=== PATIENT | male | born 1955 | race Two or more races ===

== ENCOUNTER 2024-12-26 12:58 | Inpatient (IN) | payer OTHER ==
[~2024-12-26] VITALS: Ht 182.9 cm; Wt 82.8 kg
--- NOTE | 2024-12-26 13:54 | ED.PDOC ---
General HPI Comments This is a 69 year old male presenting to the ED with chief complaint of urinary symptoms. Patient reports that he had started to experiencing urinary frequency with associated dysuria, hematuria, urgency, and incontinence since 1.5 hours ago. Patient denies any fever, chills, flank pain, or abdominal pain. Chief Complaint: Urinary Time Seen by MD: 13:49 Reviewed notes: Nurses Notes, Medications, Allergies Allergies: Coded Allergies: NO KNOWN ALLERGIES (Unverified , 12/26/24) Home Meds Active Scripts Metoprolol Succinate (Toprol Xl) 50 Mg Tab, 25 MG PO DAILY for 90 Days, #45 TAB Prov:CHA VELA MD 12/30/24 Atorvastatin Calcium (ATORVASTATIN CALCIUM) 20 Mg Tab, 10 MG PO HS for 90 Days, #45 TAB Prov:CHA VELA MD 12/30/24 Amlodipine Besylate (NORVASC TABLET) 5 Mg Tb, 5 MG PO BID for 90 Days, #180 TAB Prov:CHA VELA MD 12/30/24 Information Source: Patient Mode of Arrival: Ambulatory Severity: Moderate Timing: Hours Duration: Since onset Prehospital treatment: None Onset: Spontaneous Symptoms: Dysuria, Frequency, Urgency, Hematuria History of: None Location: None associated signs and symptoms: Dysuria, Frequency, Urgency, Hematuria Past Medical History PAST MEDICAL HISTORY: Denies Surgical History: Denies all surgeries Family History Family History: Reviewed,noncontributory to illness Social History Smoker: Non-Smoker Alcohol: Denies ETOH Use Drugs: Denies Drug Use Lives In: Home Constitutional: denies: chills, diaphoresis, fatigue, fever, malaise, sweats, weakness, others EENTM: denies: blurred vision, double vision, ear bleeding, ear discharge, ear drainage, ear pain, ear ringing, eye pain, eye redness, hearing loss, mouth pain, mouth swelling, nasal discharge, nose bleeding, nose congestion, nose pain, photophobia, tearing, throat pain, throat swelling, voice changes, others Respiratory: denies: cough, hemoptysis, orthopnea, SOB at rest, shortness of breath, SOB with excertion, stridor, wheezing, others Cardiovascular: denies: chest pain, dizzy spells, diaphoresis, Dyspnea on exertion, edema, irregular heart beat, left arm pain, lightheadedness, palpitations, PND, syncope, others Gastrointestinal: denies: abdomen distended, abdominal pain, blood streaked bowels, constipated, diarrhea, dysphagia, difficulty swallowing, hematemesis, melena, nausea, poor appetite, poor fluid intake, rectal bleeding, rectal pain, vomiting, others Genitourinary: reports: dysuria, frequency, hematuria, incontinence, urgency; denies: burning, flank pain, penile discharge, penile sore, pain, testicle pain, testicle swelling, others Neurological: denies: dizziness, fainting, headache, left sided numbness, left sided weakness, numbness, paresthesia, pre-existing deficit, right sided numbness, right sided weakness, seizure, speech problems, tingling, tremors, weakness, others Musculoskeletal: denies: back pain, gout, joint pain, joint swelling, muscle pain, muscle stiffness, neck pain, others Integumetry: denies: bruises, change in color, change in hair/nails, dryness, laceration, lesions, lumps, rash, wounds, others Allergic/Immunocompromised: denies: Difficulty Healing, Frequent Infections, Hives, Itching, others Hematologic/Lymphatic: denies: anemia, blood clots, easy bleeding, easy bruising, swollen glands, others Endocrine: denies: excessive hunger, excessive sweating, excessive thirst, excessive urination, flushing, intolerance to cold, intolerance to heat, unexplained weight gain, unexplained weight loss, others Psychiatric: denies: anxiety, bipolar disorder, depression, hopeless, panic disorder, schizophrenia, sleepless, suicidal, others All Other Systems: Reviewed and Negative Physical Exam General Appearance: No Apparent Distress, Normal HEENT: Normal ENT Inspection, Pharynx Normal, TMs Normal Neck: Full Range of Motion, Non-Tender, Normal, Normal Inspection Respiratory: Chest Non-Tender, Lungs Clear, No Accessory Muscle Use, No Respiratory Distress, Normal Breath Sounds Cardiovascular: No Edema, No JVD, No Murmur, No Gallop, Normal Peripheral Pulses, Regular Rate/Rhythm Breast Exam: Deferred Gastrointestinal: No Organomegaly, Non Tender, No Pulsatile Mass, Normal Bowel Sounds, Soft Genitalia: Deferred Pelvic: Deferred Rectal: Deferred Extremities: No calf tenderness, Normal capillary refill, Normal inspection, Normal range of motion, Non-tender, No pedal edema Musculoskeletal : Apperance: Normal Neurologic: Alert, psychiatric clinician II-XII nml as Tested, No Motor Deficits, Normal Affect, Normal Mood, No Sensory Deficits Cerebellar Function: Normal Reflexes: Normal Skin: Dry, Normal Color, Warm Lymphatic: No Adenopathy Was a procedure done? Was a procedure done?: No Differential Diagnosis Kidney stone (Female): N/A Kidney stone (Male): Pyelonephritis, Strain Penile/Scrotal: UTI Urinary Problem (Male): N/A Urinary Problem (Female): N/A X-Ray, Labs, Meds, VS Vital Signs Date Time Temp Pulse Resp B/P (MAP) Pulse Ox O2 Delivery O2 Flow Rate FiO2 12/26/24 19:00 81 20 153/78 (103) 95 12/26/24 18:33 79 17 98 Nasal Cannula* 2 28 12/26/24 18:33 98.2 79 17 153/78 (103) 98 98.2 12/26/24 18:30 53 150/84 84 148/83 94 142/84 12/26/24 18:20 75 12/26/24 13:00 98.1 89 16 142/81 98 98.1 Lab Test 12/26/24 13:44 12/26/24 13:41 Range/Units Urine Color Dark-red Yellow Urine Clarity Ex.turbid Clear Urine pH 6.0 5.0-9.0 Urine Specific [place] 1.025 1.001-1.035 Urine Protein 2+ H Negative Urine Ketones Negative Negative Urine Blood 3+ H Negative /uL Urine Nitrite Negative Negative Urine Bilirubin Negative Negative Urine Urobilinogen Normal Negative mg/dL Urine Leukocyte Esterase Negative Negative /uL Urine RBC [id number] 0 - 3 /hpf Urine Microscopic WBC 2052 H 0-3 /HPF Urine Squamous Epithelial Cells None seen <5 /hpf Urine Bacteria None seen None Seen /hpf Urine Glucose Normal Normal mg/dL White Blood Count 7.1 4.4-10.8 10^3/uL Red Blood Count 5.06 4.5-5.90 10^6/uL Hemoglobin 15.8 13.5-17.5 g/dL Hematocrit 45.9 41.0-53.0 % Mean Corpuscular Volume 90.7 80.0-100.0 fL Mean Corpuscular Hemoglobin 31.3 28.0-32.0 pg Mean Corpuscular Hemoglobin Concent 34.5 32.0-36.0 g/dL Red Cell Distribution Width 14.4 H 11.8-14.3 % Platelet Count 210 140-450 10^3/uL Mean Platelet Volume 8.6 6.9-10.8 fL Neutrophils (%) (Auto) 70.1 37.0-80.0 % Lymphocytes (%) (Auto) 20.6 10.0-50.0 % Monocytes (%) (Auto) 7.1 0.0-12.0 % Eosinophils (%) (Auto) 1.6 0.0-7.0 % Basophils (%) (Auto) 0.6 0.0-2.0 % Neutrophils # (Auto) 5.0 1.6-8.6 10 ^3/uL Lymphocytes # (Auto) 1.5 0.4-5.4 10 ^3/uL Monocytes # (Auto) 0.5 0-1.3 10 ^3/uL Eosinophils # (Auto) 0.1 0-0.8 10 ^3/uL Basophils # (Auto) 0 0-0.2 10 ^3/uL Nucleated Red Blood Cells 0.1 % Sodium Level 144 136-145 mmol/L Potassium Level 4.4 3.5-5.1 mmol/L Chloride Level 108 H 98-107 mmol/L Carbon Dioxide Level 27 20-31 mmol/L Anion Gap 9 5-15 Blood Urea Nitrogen 20 9-23 mg/dL Creatinine 1.64 H 0.700-1.30 mg/dL Glomerular Filtration Rate Calc 45 >90 mL/min BUN/Creatinine Ratio 12.2 10.0-20.0 Serum Glucose 98 74-106 mg/dL Calcium Level 9.3 8.7-10.4 mg/dL Microbiology Date/Time Source Procedure Growth Status 12/26/24 13:44 Voided Urine Urine Culture - Final Complete Time of 1ST Reevaluation: 14:48 Reevaluation 1ST: Unchanged Patient Education/Counseling: Diagnosis, Treatment Family Education/Counseling: No Family Present SEPSIS Sepsis Screen Date sepsis recognized/suspect: Dec 26, 2024 Time Sepsis recognized/suspect: 1300 Recent Procedure: No On Antibiotic Therapy: No Respiratory Rate >20: No Heart Rate >90: No Temp<36 C (96.8 F) or >38.3 C: No SBP <90 or MAP <65 mmHG: No New Acute Mental Status Change: No Is the patient on CPAP, BIPAP,: No Physician Orders Ct Ab Pel Wo Con-No Oral Or Iv (12/26/24 17:12) Orthostatic Vital Signs (12/26/24 ) Electrocardigram (12/26/24 18:10) Vital Signs Date Time Temp Pulse Resp B/P (MAP) Pulse Ox O2 Delivery O2 Flow Rate FiO2 12/26/24 19:00 81 20 153/78 (103) 95 12/26/24 18:33 79 17 98 Nasal Cannula* 2 28 12/26/24 18:33 98.2 79 17 153/78 (103) 98 98.2 12/26/24 18:30 53 150/84 84 148/83 94 142/84 12/26/24 18:20 75 12/26/24 13:00 98.1 89 16 142/81 98 98.1 Laboratory Tests Test 12/26/24 13:41 White Blood Count 7.1 10^3/uL (4.4-10.8) Departure 1 Departure Time of Disposition: 19:03 (Patient with a acute hematuria and concern for UTI. We will patient likely with a complicated urinary tract infection. We will admit patient for further workup and expert consultation) Impression: Primary Impression: Complicated UTI (urinary tract infection) Additional Impressions: Acute urinary retention Hematuria Disposition: ADMITTED INPATIENT Admit to: Med Surg Condition: Guarded e-Prescriptions Metoprolol Succinate (Toprol Xl) 50 Mg Tab 25 MG PO DAILY for 90 Days, #45 TAB Prov: CHA VELA MD 12/30/24 Atorvastatin Calcium (ATORVASTATIN CALCIUM) 20 Mg Tab 10 MG PO HS for 90 Days, #45 TAB Prov: CHA VELA MD 12/30/24 Amlodipine Besylate (NORVASC TABLET) 5 Mg Tb 5 MG PO BID for 90 Days, #180 TAB Prov: CHA VELA MD 12/30/24 Critical Care Note Critical Care Time?: No Stability Stability form required: No Heart Score Heart Score: Heart Score Response (Comments) Value History N/A 0 EKG N/A 0 Age N/A 0 Risk Factors N/A 0 Troponin N/A 0 Total 0 I personally scribed for BUZZ MORGAN MD ([email or web address]) on 12/26/24 at 13:54. Electronically submitted by Vance Grijalva ([email or web address]). BUZZ MORGAN MD Dec 26, 2024 13:54
[2024-12-26 14:11] LABS: Urine Protein, UAD 2+ (Negative)
[2024-12-26 14:13] LABS: Hematocrit 45.9 % (41.0-53.0); Hemoglobin 15.8 g/dL (13.5-17.5); Mean Corpuscular Hemoglobin 31.3 pg (28.0-32.0); Mean Corpuscular Volume 90.7 fL (80.0-100.0); Nucleated Red Blood Cells % 0.1 %
[2024-12-26 14:18] LABS: Potassium 4.4 mmol/L (3.5-5.1); Sodium 144 mmol/L (136-145)
[2024-12-26 14:19] LABS: Anion Gap 9 (5-15); Carbon Dioxide 27 mmol/L (20-31)
[2024-12-26 14:20] LABS: Calcium 9.3 mg/dL (8.7-10.4)
[2024-12-26 14:24] LABS: BUN/Creatinine Ratio 12.2 (10.0-20.0); Blood Urea Nitrogen 20 mg/dL (9-23); Glucose 98 mg/dL (74-106)
[2024-12-26 14:36] LABS: Chloride 108 mmol/L (98-107)
[2024-12-26] MEDS: SODIUM CHLORIDE 0.9% 1,000 ML IV ONE (18:24)
[2024-12-26 18:33] VITALS: PULSE 79; RESP 17; O2SAT 98
--- NOTE | 2024-12-26 18:35 | DVH ---
Exam: CT CT AB PEL WO CON-NO ORAL OR IV History: hematuria Comparison Study: None TECHNIQUE: Multidetector CT of the abdomen and pelvis without IV contrast. Axial, coronal and sagittal multiplanar reformats were obtained from the axial data set by the technologist. Radiation Dose Information: CT Dose: CTDI volume is 7.96 mGy. Dose-length product is 468.44 mGy*cm FINDINGS: Bibasilar atelectasis. Partially visualized heart is unremarkable. Status post cholecystectomy. Liver, spleen, pancreas and right adrenal glands unremarkable. 2 cm left adrenal nodule measuring up to -4 Hounsfield units which may represent an adenoma. Additional 1.4 cm left adrenal nodule measuring up to 2 Hounsfield units which may also represent an adenoma. The right kidney and ureter unremarkable. Severe Left renal hydronephrosis with cortical thinning and abrupt cutoff of the ureteropelvic junction without obstructing calculus. Bilobed Left renal lower pole calcification measuring up to 1.8 x 1.2 cm. Exophytic left renal upper pole cysts measuring up to 1.9 cm. Mild wall thickening of the urinary bladder. Hyperdense area of the Posterior Urinary bladder. Prostate measures 4.3 x 5.9 x 5 cm with brachytherapy seeding. Mild gastric wall thickening which may be due to inadequate distention. The small bowel loops unremarkable. Appendix is unremarkable. Small amount of fecal material within the colon. No evidence of intraperitoneal free air or free fluid. No evidence of aortic aneurysm. [id number] atherosclerotic calcification of the aorta and bilateral iliacs. No significant lymphadenopathy. Small fat containing left inguinal hernia. Tiny fat containing periumbilical hernia. No evidence of acute osseous abnormalities. Diffuse demineralization. IMPRESSION: Severe left Hydronephrosis with no obstructing calculus noted and abrupt tapering of the ureteropelvic junction. Bilobed 1.8 x 1.2 cm nonobstructing left renal lower pole calculus. Left adrenal adenomas Mild Gastric wall thickening which may be due to inadequate distention with mild gastritis not excluded. Wall thickening of the urinary bladder which may be from inadequate distention. Correlation with urinalysis is recommended to exclude cystitis. Ill-defined hyperdense area of the posterior urinary bladder which may represent debris large blood products with urinary bladder mass not completely excluded. Ultrasound is recommended for further evaluation.
--- NOTE | 2024-12-26 19:07 | ECG ---
[facility] Test Date: 2024-12-26 Test Time: 18:20:38 Pat Name: TRENT SANTORO Department: [facility] ED Patient ID: [id number] Room: 0212 Gender: M Senior Care Provider: stephania : 1955 Requested By: ABBEY ROBIN Order Number: [id number] Reading MD: Mitesh Simmons Measurements Intervals [place] Rate: 75 P: 59 VT: 177 QRS: 24 QRSD: 104 T: 62 QT: 405 QTc: 453 Interpretive Statements Sinus rhythm Electronically Signed On 12-30-2024 15:40:27 PST by Mitesh Simmons Please click the below link to view image of tracing.
[2024-12-26] MEDS ORDERED: ONDANSETRON HCL 4 MG/2 ML VIAL IV PRN (19:30)
[2024-12-26] MEDS ORDERED: ACETAMINOPHEN 325 MG TAB PO PRN (19:30)
[2024-12-26] MEDS ORDERED: HYDROcodone-ACET 5/325MG TAB PO PRN (19:30)
[2024-12-26] MEDS ORDERED: TEMAZEPAM 15 MG CAP PO PRN (19:30)
[2024-12-26] MEDS: ATORVASTATIN 20 MG TAB PO SCH (21:30)
--- NOTE | 2024-12-26 22:15 | DVHHP2 ---
History of Present Illness Reason for Visit: Hematuria History of Present Illness 69-year-old male presents for evaluation of urinary symptoms. Patient reports a one day history of developing dysuria with urgency and hematuria. Denies fever or chills. No abdominal pain. Past Medical History Hypertension, dyslipidemia Past Surgical History Denies Family History Noncontributory Smoke: No ALCOHOL: none Drugs: None Lives: with Family Review of Systems Review of Systems Review of systems are currently negative otherwise addressed in HPI. Allergies: Coded Allergies: NO KNOWN ALLERGIES (Unverified , 12/26/24) Medications Current Medications Medications Dose Ordered Sig/Jorge Route Start Time Stop Time Status Last Admin Dose Admin Metoprolol Succinate 25 mg DAILY PO 12/27/24 10:00 Amlodipine Besylate 5 mg DAILY PO 12/27/24 10:00 Atorvastatin Calcium 10 mg HS PO 12/26/24 22:00 12/26/24 21:30 10 MG Ceftriaxone Sodium 50 ml @ 100 mls/hr DAILY@09 IV 12/27/24 09:00 Acetaminophen/ Hydrocodone Bitart 1 tab Q4HP PRN PO 12/26/24 19:30 Temazepam 15 mg QHSP PRN PO 12/26/24 19:30 Ondansetron HCl 4 mg Q4HP PRN IV 12/26/24 19:30 Acetaminophen 650 mg Q6HP PRN PO 12/26/24 19:30 Exam Vital Signs Vital Signs Date Time Temp Pulse Resp B/P (MAP) Pulse Ox O2 Delivery O2 Flow Rate FiO2 12/26/24 21:15 80 12/26/24 19:00 20 153/78 (103) 95 12/26/24 18:33 Nasal Cannula* 2 28 12/26/24 18:33 98.2 98.2 Exam Gen: 69-year-old male in mild distress. Skin: Warm, dry, normal color and texture, no rash. HEENT: Normocephalic atraumatic, mucous membranes moist and pink. Neck: Cervical and supraclavicular nodes normal without enlargement, trachea is midline, thyroid gland is normal without masses. Pulmonary: Clear to auscultation and percussion bilaterally. Cardiac: Regular rate and rhythm. No murmur Abdomen: Soft, nontender, nondistended, bowel sounds present all 4 quadrants, no guarding, no rigidity, no organomegaly. Extremities: No cyanosis, clubbing, no edema Neuro: Cranial nerves II through XII grossly intact, normal affect and speech, no focal motor deficits. Labs/Xrays ORDERING PHYSICIAN: BUZZ MORGAN MD PROCEDURE(s): ABPL - CT AB PEL WO CON-NO ORAL OR IV REASON: hematuria ORDER NUMBER(s): [id number], ACCESSION NUMBER(s): [id number] Exam: CT CT AB PEL WO CON-NO ORAL OR IV History: hematuria Comparison Study: None TECHNIQUE: Multidetector CT of the abdomen and pelvis without IV contrast. Axial, coronal and sagittal multiplanar reformats were obtained from the axial data set by the technologist. Radiation Dose Information: CT Dose: CTDI volume is 7.96 mGy. Dose-length product is 468.44 mGy*cm FINDINGS: Bibasilar atelectasis. Partially visualized heart is unremarkable. Status post cholecystectomy. Liver, spleen, pancreas and right adrenal glands unremarkable. 2 cm left adrenal nodule measuring up to -4 Hounsfield units which may represent an adenoma. Additional 1.4 cm left adrenal nodule measuring up to 2 Hounsfield units which may also represent an adenoma. The right kidney and ureter unremarkable. Severe Left renal hydronephrosis with cortical thinning and abrupt cutoff of the ureteropelvic junction without obstructing calculus. Bilobed Left renal lower pole calcification measuring up to 1.8 x 1.2 cm. Exophytic left renal upper pole cysts measuring up to 1.9 cm. Mild wall thickening of the urinary bladder. Hyperdense area of the Posterior Urinary bladder. Prostate measures 4.3 x 5.9 x 5 cm with brachytherapy seeding. Mild gastric wall thickening which may be due to inadequate distention. The small bowel loops unremarkable. Appendix is unremarkable. Small amount of fecal material within the colon. No evidence of intraperitoneal free air or free fluid. No evidence of aortic aneurysm. [id number] atherosclerotic calcification of the aorta and bilateral iliacs. No significant lymphadenopathy. Small fat containing left inguinal hernia. Tiny fat containing periumbilical hernia. No evidence of acute osseous abnormalities. Diffuse demineralization. IMPRESSION: Severe left Hydronephrosis with no obstructing calculus noted and abrupt ta pering of the ureteropelvic junction. Bilobed 1.8 x 1.2 cm nonobstructing left renal lower pole calculus. Left adrenal adenomas Mild Gastric wall thickening which may be due to inadequate distention with mild gastritis not excluded. Wall thickening of the urinary bladder which may be from inadequate distention. Correlation with urinalysis is recommended to exclude cystitis. Ill-defined hyperdense area of the posterior urinary bladder which may represent debris large blood products with urinary bladder mass not completely excluded. Ultrasound is recommended for further evaluation. Labs Test 12/26/24 13:44 12/26/24 13:41 Range/Units Urine Color Dark-red Yellow Urine Clarity Ex.turbid Clear Urine pH 6.0 5.0-9.0 Urine Specific [place] 1.025 1.001-1.035 Urine Protein 2+ H Negative Urine Ketones Negative Negative Urine Blood 3+ H Negative /uL Urine Nitrite Negative Negative Urine Bilirubin Negative Negative Urine Urobilinogen Normal Negative mg/dL Urine Leukocyte Esterase Negative Negative /uL Urine RBC [id number] 0 - 3 /hpf Urine Microscopic WBC 2052 H 0-3 /HPF Urine Squamous Epithelial Cells None seen <5 /hpf Urine Bacteria None seen None Seen /hpf Urine Glucose Normal Normal mg/dL White Blood Count 7.1 4.4-10.8 10^3/uL Red Blood Count 5.06 4.5-5.90 10^6/uL Hemoglobin 15.8 13.5-17.5 g/dL Hematocrit 45.9 41.0-53.0 % Mean Corpuscular Volume 90.7 80.0-100.0 fL Mean Corpuscular Hemoglobin 31.3 28.0-32.0 pg Mean Corpuscular Hemoglobin Concent 34.5 32.0-36.0 g/dL Red Cell Distribution Width 14.4 H 11.8-14.3 % Platelet Count 210 140-450 10^3/uL Mean Platelet Volume 8.6 6.9-10.8 fL Neutrophils (%) (Auto) 70.1 37.0-80.0 % Lymphocytes (%) (Auto) 20.6 10.0-50.0 % Monocytes (%) (Auto) 7.1 0.0-12.0 % Eosinophils (%) (Auto) 1.6 0.0-7.0 % Basophils (%) (Auto) 0.6 0.0-2.0 % Neutrophils # (Auto) 5.0 1.6-8.6 10 ^3/uL Lymphocytes # (Auto) 1.5 0.4-5.4 10 ^3/uL Monocytes # (Auto) 0.5 0-1.3 10 ^3/uL Eosinophils # (Auto) 0.1 0-0.8 10 ^3/uL Basophils # (Auto) 0 0-0.2 10 ^3/uL Nucleated Red Blood Cells 0.1 % Sodium Level 144 136-145 mmol/L Potassium Level 4.4 3.5-5.1 mmol/L Chloride Level 108 H 98-107 mmol/L Carbon Dioxide Level 27 20-31 mmol/L Anion Gap 9 5-15 Blood Urea Nitrogen 20 9-23 mg/dL Creatinine 1.64 H 0.700-1.30 mg/dL Glomerular Filtration Rate Calc 45 >90 mL/min BUN/Creatinine Ratio 12.2 10.0-20.0 Serum Glucose 98 74-106 mg/dL Calcium Level 9.3 8.7-10.4 mg/dL SEPSIS Sepsis Screen Date sepsis recognized/suspect: Dec 26, 2024 Time Sepsis recognized/suspect: 1832 Recent Procedure: No On Antibiotic Therapy: No Respiratory Rate >20: No Heart Rate >90: No Temp<36 C (96.8 F) or >38.3 C: No SBP <90 or MAP <65 mmHG: No New Acute Mental Status Change: No Is the patient on CPAP, BIPAP,: No Physician Orders Ct Ab Pel Wo Con-No Oral Or Iv (12/26/24 17:12) Orthostatic Vital Signs (12/26/24 ) Metoprolol Xl Succinate (Toprol Xl) (12/27/24 10:00) Amlodipine Tablet (Norvasc Tablet) (12/27/24 10:00) Atorvastatin (Lipitor) (12/26/24 22:00) Ceftriaxone 1gm/50ml (Rocephin) (12/27/24 09:00) Urine Bacterial Culture (12/26/24 19:24) Basic Metabolic Panel (12/27/24 04:00) * Urology Consult (12/26/24 19:24) Admit (12/26/24 19:24) Hydrocodone-Acet 5/325mg Tab (Otis 5/32 (12/26/24 19:30) Temazepam (Restoril) (12/26/24 19:30) Ondansetron Hcl (Zofran) (12/26/24 19:30) Cardiac Diet-2gna,Lofat,Lochol (12/27/24 Breakfast) Condition: Stable (12/26/24 19:24) Acetaminophen Tablet (Tylenol Tablet) (12/26/24 19:30) Bedrest With Bathroom Privileg (12/26/24 19:24) Complete Blood Count (12/27/24 04:00) Amlodipine Tablet (Norvasc Tablet) (12/26/24 22:15) Vital Signs Date Time Temp Pulse Resp B/P (MAP) Pulse Ox O2 Delivery O2 Flow Rate FiO2 12/26/24 21:15 80 12/26/24 19:00 81 20 153/78 (103) 95 12/26/24 18:33 79 17 98 Nasal Cannula* 2 28 12/26/24 18:33 98.2 79 17 153/78 (103) 98 98.2 12/26/24 18:30 53 150/84 84 148/83 94 142/84 12/26/24 18:20 75 Laboratory Tests Test 12/26/24 13:41 White Blood Count 7.1 10^3/uL (4.4-10.8) Medications Medications Dose Ordered Sig/Jorge Route Start Time Stop Time Status Last Admin Dose Admin Atorvastatin Calcium 10 mg HS PO 12/26/24 22:00 12/26/24 21:30 10 MG Ceftriaxone Sodium 50 ml @ 100 mls/hr ONCE ONCE IV 12/26/24 19:30 12/26/24 20:08 DC 12/26/24 19:30 100 MLS/HR Sodium Chloride 1,000 ml @ 1,000 mls/hr Q1H ONCE IV 12/26/24 18:15 12/26/24 19:14 DC 12/26/24 18:24 1,000 MLS/HR Assessment/Plan Assessment/Plan Assessment Hematuria Acute cystitis Hypertension Plan Admit the patient to [facility] to the hospitalist Urology consultation Rocephin Pain management Resume home medications Continue treatment per orders. Plan discussed with: Patient My Orders Orders - GOMEZ JENNINGS Procedure Category Date Status Time Metoprolol Xl PHA 12/27/24 In Process Succinate (Toprol Xl) 10:00 Amlodipine Tablet PHA 12/27/24 In Process (Norvasc Tablet) 10:00 Atorvastatin (Lipitor) PHA 12/26/24 In Process 22:00 Ceftriaxone 1gm/50ml PHA 12/27/24 In Process (Rocephin) 09:00 Urine Bacterial LIZETTE 12/26/24 In Process Culture 19:24 Basic Metabolic Panel LAB 12/27/24 Verified 04:00 * Urology Consult CONS 12/26/24 Transmitted 19:24 Admit ADMIT 12/26/24 Transmitted 19:24 Hydrocodone-Acet PHA 12/26/24 In Process 5/325mg Tab (Otis 19:30 Temazepam (Restoril) PHA 12/26/24 In Process 19:30 Ondansetron Hcl PHA 12/26/24 In Process (Zofran) 19:30 Cardiac DIET 12/27/24 Transmitted Diet-2gna,Lofat,Lochol Breakfast Condition: Stable CHELSEA 12/26/24 In Process 19:24 Acetaminophen Tablet PHA 12/26/24 In Process (Tylenol Tablet) 19:30 Bedrest With Bathroom CHELSEA 12/26/24 In Process Privileg 19:24 Complete Blood Count LAB 12/27/24 Verified 04:00 Amlodipine Tablet PHA 12/26/24 Transmitted (Norvasc Tablet) 22:15 Date of Service: Dec 26, 2024 Billing Provider: GOMEZ JENNINGS Common Visit Codes: [id number] INP/OBS CARE (MOD) GOMEZ JENNINGS Dec 26, 2024 22:15
[2024-12-27] VITALS (10 sets, daily range): BP systolic 114–140; BP diastolic 68–89; PULSE 62–92; RESP 17–19; TEMP 97.5–98.6; O2SAT 95–99
[2024-12-27 06:37] LABS: Hematocrit 44.1 % (41.0-53.0); Hemoglobin 15.0 g/dL (13.5-17.5); Mean Corpuscular Hemoglobin 31.0 pg (28.0-32.0); Mean Corpuscular Volume 91.4 fL (80.0-100.0); Nucleated Red Blood Cells % 0.1 %
[2024-12-27 06:47] LABS: Potassium 4.2 mmol/L (3.5-5.1)
[2024-12-27 06:48] LABS: Anion Gap 9 (5-15); Carbon Dioxide 27 mmol/L (20-31)
[2024-12-27 06:49] LABS: Calcium 9.0 mg/dL (8.7-10.4)
[2024-12-27 06:53] LABS: Glucose 91 mg/dL (74-106)
[2024-12-27 06:54] LABS: BUN/Creatinine Ratio 14.5 (10.0-20.0); Blood Urea Nitrogen 20 mg/dL (9-23); Chloride 113 mmol/L (98-107); Sodium 149 mmol/L (136-145)
--- NOTE | 2024-12-27 09:49 | DVHINCON2 ---
Date of service: Dec 27, 2024 Referring Physician Hospitalist Reason for Consultation Hematuria History of Present Illness 69 year old male admitted for hematuria. Patient reports that he had started to experiencing urinary frequency with associated dysuria, hematuria, urgency, and incontinence. Patient denies any fever, chills, flank pain, or abdominal pain. CT Scan shows severe left hydronephrosis, left renal stones. Chief Complaint: Urinary Reviewed notes: Nurses Notes, Medications, Allergies Allergies: Coded Allergies: NO KNOWN ALLERGIES (Unverified , 12/26/24) Information Source: Patient Mode of Arrival: Ambulatory Severity: Moderate Timing: Hours Duration: Since onset Prehospital treatment: None Onset: Spontaneous Symptoms: Dysuria, Frequency, Urgency, Hematuria History of: None Location: None associated signs and symptoms: Dysuria, Frequency, Urgency, Hematuria Past Medical History Denies Family History: Hypertension G8 MOTHER Allergies: Coded Allergies: NO KNOWN ALLERGIES (Unverified , 12/26/24) Current Medications Current Medications Medications (Trade) Dose Ordered Sig/Jorge Route PRN Reason Start Time Stop Time Status Last Admin Metoprolol Succinate (Toprol Xl) 25 mg DAILY PO 12/27/24 10:00 Amlodipine Besylate (Norvasc Tablet) 5 mg DAILY PO 12/27/24 10:00 12/26/24 22:12 DC Atorvastatin Calcium (Lipitor) 10 mg HS PO 12/26/24 22:00 12/26/24 21:30 Ceftriaxone Sodium 50 ml @ 100 mls/hr DAILY@09 IV 12/27/24 09:00 Acetaminophen/ Hydrocodone Bitart ([place] 5/325MG Tab) 1 tab Q4HP PRN PO MODERATE PAIN (4-6 PAIN SCALE) 12/26/24 19:30 Temazepam (Restoril) 15 mg QHSP PRN PO FOR INSOMNIA 12/26/24 19:30 Ondansetron HCl (Zofran) 4 mg Q4HP PRN IV NAUSEA / VOMITING 12/26/24 19:30 Acetaminophen (Tylenol Tablet) 650 mg Q6HP PRN PO PAIN SCALE 1-3 OR TEMP>100.4 12/26/24 19:30 Amlodipine Besylate (Norvasc Tablet) 5 mg BID PO 12/26/24 22:15 Review of Systems Constitutional: denies: chills, diaphoresis, fatigue, fever, malaise, sweats, weakness, others EENTM: denies: blurred vision, double vision, ear bleeding, ear discharge, ear drainage, ear pain, ear ringing, eye pain, eye redness, hearing loss, mouth pain, mouth swelling, nasal discharge, nose bleeding, nose congestion, nose pain, photophobia, tearing, throat pain, throat swelling, voice changes, others Respiratory: denies: cough, hemoptysis, orthopnea, SOB at rest, shortness of breath, SOB with excertion, stridor, wheezing, others Cardiovascular: denies: chest pain, dizzy spells, diaphoresis, Dyspnea on exertion, edema, irregular heart beat, left arm pain, lightheadedness, palpitations, PND, syncope, others Gastrointestinal: denies: abdomen distended, abdominal pain, blood streaked bowels, constipated, diarrhea, dysphagia, difficulty swallowing, hematemesis, melena, nausea, poor appetite, poor fluid intake, rectal bleeding, rectal pain, vomiting, others Genitourinary: reports: dysuria, frequency, hematuria, incontinence, urgency; denies: burning, flank pain, penile discharge, penile sore, pain, testicle pain, testicle swelling, others Neurological: denies: dizziness, fainting, headache, left sided numbness, left sided weakness, numbness, paresthesia, pre-existing deficit, right sided numbness, right sided weakness, seizure, speech problems, tingling, tremors, weakness, others Musculoskeletal: denies: back pain, gout, joint pain, joint swelling, muscle pain, muscle stiffness, neck pain, others Integumetry: denies: bruises, change in color, change in hair/nails, dryness, laceration, lesions, lumps, rash, wounds, others Allergic/Immunocompromised: denies: Difficulty Healing, Frequent Infections, Hives, Itching, others Hematologic/Lymphatic: denies: anemia, blood clots, easy bleeding, easy bruising, swollen glands, others Endocrine: denies: excessive hunger, excessive sweating, excessive thirst, excessive urination, flushing, intolerance to cold, intolerance to heat, unexplained weight gain, unexplained weight loss, others Psychiatric: denies: anxiety, bipolar disorder, depression, hopeless, panic disorder, schizophrenia, sleepless, suicidal, others All Other Systems: Reviewed and Negative Vital Signs Vital Signs Date Time Temp Pulse Resp B/P (MAP) Pulse Ox O2 Delivery O2 Flow Rate FiO2 12/27/24 05:00 98.1 77 19 140/87 (104) 95 98.1 12/27/24 02:11 Room Air* 0 21 Physical Exam General Appearance: No Apparent Distress, Normal HEENT: Normal ENT Inspection, Pharynx Normal, TMs Normal Neck: Full Range of Motion, Non-Tender, Normal, Normal Inspection Respiratory: Chest Non-Tender, Lungs Clear, No Accessory Muscle Use, No Respiratory Distress, Normal Breath Sounds Cardiovascular: No Edema, No JVD, No Murmur, No Gallop, Normal Peripheral Pulses, Regular Rate/Rhythm Breast Exam: Deferred Gastrointestinal: No Organomegaly, Non Tender, No Pulsatile Mass, Normal Bowel Sounds, Soft Genitalia: Normal Extremities: No calf tenderness, Normal capillary refill, Normal inspection, Normal range of motion, Non-tender, No pedal edema Musculoskeletal : Apperance: Normal Neurologic: Alert, senior solutions workflow consultant II-XII nml as Tested, No Motor Deficits, Normal Affect, Normal Mood, No Sensory Deficits Cerebellar Function: Normal Reflexes: Normal Skin: Dry, Normal Color, Warm Lymphatic: No Adenopathy Labs/Diagnostic Data Labs Test 12/27/24 05:05 12/26/24 13:44 Range/Units White Blood Count 6.0 4.4-10.8 10^3/uL Red Blood Count 4.82 4.5-5.90 10^6/uL Hemoglobin 15.0 13.5-17.5 g/dL Hematocrit 44.1 41.0-53.0 % Mean Corpuscular Volume 91.4 80.0-100.0 fL Mean Corpuscular Hemoglobin 31.0 28.0-32.0 pg Mean Corpuscular Hemoglobin Concent 33.9 32.0-36.0 g/dL Red Cell Distribution Width 14.7 H 11.8-14.3 % Platelet Count 186 140-450 10^3/uL Mean Platelet Volume 8.5 6.9-10.8 fL Neutrophils (%) (Auto) 65.7 37.0-80.0 % Lymphocytes (%) (Auto) 25.3 10.0-50.0 % Monocytes (%) (Auto) 6.7 0.0-12.0 % Eosinophils (%) (Auto) 1.7 0.0-7.0 % Basophils (%) (Auto) 0.6 0.0-2.0 % Neutrophils # (Auto) 4.0 1.6-8.6 10 ^3/uL Lymphocytes # (Auto) 1.5 0.4-5.4 10 ^3/uL Monocytes # (Auto) 0.4 0-1.3 10 ^3/uL Eosinophils # (Auto) 0.1 0-0.8 10 ^3/uL Basophils # (Auto) 0 0-0.2 10 ^3/uL Nucleated Red Blood Cells 0.1 % Sodium Level 149 #H 136-145 mmol/L Potassium Level 4.2 3.5-5.1 mmol/L Chloride Level 113 H 98-107 mmol/L Carbon Dioxide Level 27 20-31 mmol/L Anion Gap 9 5-15 Blood Urea Nitrogen 20 9-23 mg/dL Creatinine 1.38 H 0.700-1.30 mg/dL Glomerular Filtration Rate Calc 55 >90 mL/min BUN/Creatinine Ratio 14.5 10.0-20.0 Serum Glucose 91 74-106 mg/dL Calcium Level 9.0 8.7-10.4 mg/dL Urine Color Dark-red Yellow Urine Clarity Ex.turbid Clear Urine pH 6.0 5.0-9.0 Urine Specific [place] 1.025 1.001-1.035 Urine Protein 2+ H Negative Urine Ketones Negative Negative Urine Blood 3+ H Negative /uL Urine Nitrite Negative Negative Urine Bilirubin Negative Negative Urine Urobilinogen Normal Negative mg/dL Urine Leukocyte Esterase Negative Negative /uL Urine RBC [id number] 0 - 3 /hpf Urine Microscopic WBC 2052 H 0-3 /HPF Urine Squamous Epithelial Cells None seen <5 /hpf Urine Bacteria None seen None Seen /hpf Urine Glucose Normal Normal mg/dL PATIENT: TRENT SANTORO ACCT: [id number] UNIT: [id number] : 1955 LOC: ER ROOM / BED: / AGE / SEX: 69 / M ADM STATUS: REG ER SERVICE 1712 ORDERING PHYSICIAN: BUZZ MORGAN MD PROCEDURE(s): ABPL - CT AB PEL WO CON-NO ORAL OR IV REASON: hematuria ORDER NUMBER(s): [id number], ACCESSION NUMBER(s): [id number] Exam: CT CT AB PEL WO CON-NO ORAL OR IV History: hematuria Comparison Study: None TECHNIQUE: Multidetector CT of the abdomen and pelvis without IV contrast. Axial, coronal and sagittal multiplanar reformats were obtained from the axial data set by the technologist. Radiation Dose Information: CT Dose: CTDI volume is 7.96 mGy. Dose-length product is 468.44 mGy*cm FINDINGS: Bibasilar atelectasis. Partially visualized heart is unremarkable. Status post cholecystectomy. Liver, spleen, pancreas and right adrenal glands unremarkable. 2 cm left adrenal nodule measuring up to -4 Hounsfield units which may represent an adenoma. Additional 1.4 cm left adrenal nodule measuring up to 2 Hounsfield units which may also represent an adenoma. The right kidney and ureter unremarkable. Severe Left renal hydronephrosis with cortical thinning and abrupt cutoff of the ureteropelvic junction without obstructing calculus. Bilobed Left renal lower pole calcification measuring up to 1.8 x 1.2 cm. Exophytic left renal upper pole cysts measuring up to 1.9 cm. Mild wall thickening of the urinary bladder. Hyperdense area of the Posterior Urinary bladder. Prostate measures 4.3 x 5.9 x 5 cm with brachytherapy seeding. Mild gastric wall thickening which may be due to inadequate distention. The small bowel loops unremarkable. Appendix is unremarkable. Small amount of fecal material within the colon. No evidence of intraperitoneal free air or free fluid. No evidence of aortic aneurysm. [id number]-[id number] atherosclerotic calcification of the aorta and bilateral iliacs. No significant lymphadenopathy. Small fat containing left inguinal hernia. Tiny fat containing periumbilical hernia. No evidence of acute osseous abnormalities. Diffuse demineralization. IMPRESSION: Severe left Hydronephrosis with no obstructing calculus noted and abrupt tapering of the ureteropelvic junction. Bilobed 1.8 x 1.2 cm nonobstructing left renal lower pole calculus. Left adrenal adenomas Mild Gastric wall thickening which may be due to inadequate distention with mild gastritis not excluded. Wall thickening of the urinary bladder which may be from inadequate distention. Correlation with urinalysis is recommended to exclude cystitis. Ill-defined hyperdense area of the posterior urinary bladder which may represent debris large blood products with urinary bladder mass not completely excluded. Ultrasound is recommended for further evaluation. ATED BY: KELSEY HEIN DO DICTATED DATE/TIME: 12/26/241832 SIGNED BY: KELSEY HEIN DO SIGNED DATE/TIME: 12/26/241832 CC: Assessment Left hydronephrosis, severe Left renal stones Hematuria Dysuria Plan/Recommendation Urine culture Bladder US to check for jetting Left PNT placement per IR requested mag 3 Renal scan with split renal function and lasix washout Plan discussed with: Patient, Other EDDIE BRIDGES MD Dec 27, 2024 09:49
[2024-12-27] MEDS: METOPROLOL SUCCINATE XL 50 MG TAB PO SCH (10:29)
--- NOTE | 2024-12-27 10:52 | DVH ---
Exam: US BLADDER History: look for left ureteral jetting Comparison: None Date: 12/27/2024 09:53 AM Technique: Grayscale and color Doppler ultrasound of the pelvis was obtained. Pre-and postvoid images of the bladder were obtained. Findings/Impression: Urinary bladder is decompressed with Still catheter. Debris is in the urinary bladder.
--- NOTE | 2024-12-27 12:20 | DVHPN2 ---
Subjective feeling well with minimal pain Reviewed: H&P Changes from previous H/P or p: No Changes Objective Vitals Vital Signs Date Time Temp Pulse Resp B/P (MAP) Pulse Ox O2 Delivery O2 Flow Rate FiO2 12/27/24 10:29 137/87 12/27/24 10:29 72 12/27/24 05:00 98.1 19 95 98.1 12/27/24 02:11 Room Air* 0 21 Intake/Output Intake and Output 12/27/24 07:00 Intake Total 1050 ml Balance 1050 ml Intake IV Total 1050 ml General Appearance: Alert, Oriented X3 HEENT: Atraumatic Lungs: Clear to auscultation Cardiovascular: Regular rate, Normal S1, Normal S2 Abdomen: Normal bowel sounds Medications Current Medications Medications Dose Ordered Sig/Jorge Route Start Time Stop Time Status Last Admin Dose Admin Metoprolol Succinate 25 mg DAILY PO 12/27/24 10:00 12/27/24 10:29 25 MG Atorvastatin Calcium 10 mg HS PO 12/26/24 22:00 12/26/24 21:30 10 MG Ceftriaxone Sodium 50 ml @ 100 mls/hr DAILY@09 IV 12/27/24 09:00 12/27/24 10:27 100 MLS/HR Acetaminophen/ Hydrocodone Bitart 1 tab Q4HP PRN PO 12/26/24 19:30 Temazepam 15 mg QHSP PRN PO 12/26/24 19:30 Ondansetron HCl 4 mg Q4HP PRN IV 12/26/24 19:30 Acetaminophen 650 mg Q6HP PRN PO 12/26/24 19:30 Amlodipine Besylate 5 mg BID PO 12/26/24 22:15 12/27/24 10:29 5 MG Laboratory Results Laboratory Tests 12/27/24 05:05 Chemistry Test 12/26/24 13:41 12/27/24 05:05 Calcium Level 9.3 mg/dL (8.7-10.4) 9.0 mg/dL (8.7-10.4) Urinalysis Test 12/26/24 13:44 Urine Color Dark-red (Yellow) Urine Clarity Ex.turbid (Clear) Urine pH 6.0 (5.0-9.0) Urine Specific [place] 1.025 (1.001-1.035) Urine Protein 2+ (Negative) H Urine Ketones Negative (Negative) Urine Blood 3+ /uL (Negative) H Urine Nitrite Negative (Negative) Urine Bilirubin Negative (Negative) Urine Urobilinogen Normal mg/dL (Negative) Urine Leukocyte Esterase Negative /uL (Negative) Urine RBC [id number] /hpf (0 - 3) Urine Microscopic WBC 2052 /HPF (0-3) H Urine Squamous Epithelial Cells None seen /hpf (<5) Urine Bacteria None seen /hpf (None Seen) Urine Glucose Normal mg/dL (Normal) Microbiology Microbiology Date/Time Source Procedure Growth Status 12/26/24 13:44 Voided Urine Urine Culture - Preliminary Resulted Assessment/Plan Assessment/Plan Hematuria Acute cystitis Hypertension Continue IV ceftriaxone urology following, going for nephrostomy tube monitor cbc and bmp Plan discussed with: Patient Date of Service: Dec 27, 2024 Billing Provider: CHA VELA MD Common Visit Codes: [id number] INP/OBS CARE(HIGH) CHA VELA MD Dec 27, 2024 12:20
[2024-12-27 13:48] LABS: INR 0.95 (0.9-1.15); Partial Thromboplastin Time 28.3 SEC (24.5-34.5); Prothrombin Time 10.1 sec (9.3-11.8)
--- NOTE | 2024-12-27 14:32 | DVH ---
INDICATION: LT HYDRO, REPEAT BLADDER URETRAL JETTING TECHNIQUE: Multiple real-time sonographic images of the kidneys and bladder were obtained. COMPARISON: None FINDINGS: The right kidney measures 10 cm in length, which is normal in size. There is normal echogenicity of the right kidney. No hydronephrosis. The left kidney measures 17 cm in length,. 2 cm left renal mass . MRI renal mass protocol recommended. Severe left hydronephrosis. Severe left hydronephrosis. No large intraluminal masses are seen in the bladder. Prior to voiding the bladder volume measures volume 120 cc. IMPRESSION: 2 cm left renal mass . MRI renal mass protocol recommended. Severe left hydronephrosis.
[2024-12-28] VITALS (12 sets, daily range): BP systolic 111–145; BP diastolic 67–99; PULSE 60–86; RESP 12–22; TEMP 98–98.3; O2SAT 95–100
[2024-12-28] MEDS: LIDOCAINE 2%HCL (LOCAL ANESTH.) INJ 20ML MDV ONE (11:46)
[2024-12-28] MEDS: fentaNYL CITRATE 100 MCG/2 ML VL ONE (11:51)
[2024-12-28] MEDS: MIDAZOLAM HCL 2MG/2ML 2ml VIAL (1mg/ml) ONE (11:51)
--- NOTE | 2024-12-28 13:11 | DVH ---
XY PERCUTANEOUS NEPHROSTOMY, HISTORY: INSERTION NEPH TUBE for severe hydronephrosis due to obstruction. PROCEDURE: Informed consent was obtained. The patient was placed on the fluoroscopic table in a prone position and IV sedation administered. The left flank was prepped with chlorhexidine which was allowed to dry and draped in the usual sterile fashion. Time out was performed. and the soft tissues infiltrated with 1% lidocaine local anesthetic. Utilizing ultrasound guidance, a 21 gauge Accu Stick needle was advanced from a posterolateral approach into an middle pole calyx, and a small amount of contrast was injected under fluoroscopy to confirm positioning. Over a mandril wire, exchange was made to a non-vascular access set, through which was advanced an 0.035 wire. Following serial dilation, an 8.5 Mongolian multipurpose nephrostomy catheter was placed with tip pigtailed within the renal pelvis. Position was confirmed with antegrade nephrostogram. The catheter was secured in place and connected to gravity drainage. A sterile dressing was applied. No immediate complication was identified. DAP 169 FLUOROSCOPY TIME: 1.5 minutes. CONTRAST USED: 20 mL. SEDATION: Dr. Cammy Barker was personally responsible for the administration of moderate sedation during the procedure performed, including the use of an independent trained observer who had no other duties during the procedure. The drugs utilized were IV fentanyl and versed (see nursing log for details). The total time of supervision by the attending physician was approximately 30 minutes. FINDINGS: Dilated left renal collecting system involving the calyces/renal pelvis/ureter to the level of the proximal ureter. New 8.5 uzbek nephrostomy tube via a posterior mid pole calyceal access, with loop coiled within the renal pelvis. IMPRESSION: Severe left hydronephrosis , status post placement of 8.5 Mongolian left percutaneous nephrostomy catheter. PLAN: Routine catheter care.
--- NOTE | 2024-12-28 13:30 | DVHPN2 ---
Subjective feeling well with minimal pain Going for nephrostomy tube Reviewed: H&P Changes from previous H/P or p: No Changes Objective Vitals Vital Signs Date Time Temp Pulse Resp B/P (MAP) Pulse Ox O2 Delivery O2 Flow Rate FiO2 12/28/24 13:15 67 12 145/96 (112) 98 12/28/24 08:34 98.1 98.1 12/28/24 08:00 Room Air* 0 21 Intake/Output Intake and Output 12/28/24 07:00 Intake Total 250 ml Output Total 180 ml Balance 70 ml Intake Oral 200 ml IV Total 50 ml Output Urine Total 180 ml General Appearance: Alert, Oriented X3 HEENT: Atraumatic Lungs: Clear to auscultation Cardiovascular: Regular rate, Normal S1, Normal S2 Abdomen: Normal bowel sounds Medications Current Medications Medications Dose Ordered Sig/Jorge Route Start Time Stop Time Status Last Admin Dose Admin Metoprolol Succinate 25 mg DAILY PO 12/27/24 10:00 12/27/24 10:29 25 MG Atorvastatin Calcium 10 mg HS PO 12/26/24 22:00 12/27/24 21:53 10 MG Ceftriaxone Sodium 50 ml @ 100 mls/hr DAILY@09 IV 12/27/24 09:00 12/28/24 08:41 100 MLS/HR Acetaminophen/ Hydrocodone Bitart 1 tab Q4HP PRN PO 12/26/24 19:30 Temazepam 15 mg QHSP PRN PO 12/26/24 19:30 Ondansetron HCl 4 mg Q4HP PRN IV 12/26/24 19:30 Acetaminophen 650 mg Q6HP PRN PO 12/26/24 19:30 Amlodipine Besylate 5 mg BID PO 12/26/24 22:15 12/27/24 21:52 5 MG Laboratory Results Laboratory Tests 12/27/24 05:05 Urinalysis Test 12/26/24 13:44 Urine Color Dark-red (Yellow) Urine Clarity Ex.turbid (Clear) Urine pH 6.0 (5.0-9.0) Urine Specific [place] 1.025 (1.001-1.035) Urine Protein 2+ (Negative) H Urine Ketones Negative (Negative) Urine Blood 3+ /uL (Negative) H Urine Nitrite Negative (Negative) Urine Bilirubin Negative (Negative) Urine Urobilinogen Normal mg/dL (Negative) Urine Leukocyte Esterase Negative /uL (Negative) Urine RBC [id number] /hpf (0 - 3) Urine Microscopic WBC 2052 /HPF (0-3) H Urine Squamous Epithelial Cells None seen /hpf (<5) Urine Bacteria None seen /hpf (None Seen) Urine Glucose Normal mg/dL (Normal) Microbiology Microbiology Date/Time Source Procedure Growth Status 12/26/24 13:44 Voided Urine Urine Culture - Preliminary Resulted Assessment/Plan Assessment/Plan Hematuria Acute cystitis Hypertension Continue IV ceftriaxone urology following, going for nephrostomy tube monitor cbc and bmp Plan discussed with: Patient My Orders Orders - CHA VELA MD Procedure Category Date Status Time Basic Metabolic Panel LAB 12/28/24 Logged 09:49 Date of Service: Dec 28, 2024 Billing Provider: CHA VELA MD Common Visit Codes: [id number] INP/OBS CARE(HIGH) CHA VELA MD Dec 28, 2024 13:30
[2024-12-28 14:51] LABS: Anion Gap 10 (5-15); Carbon Dioxide 28 mmol/L (20-31); Potassium 4.0 mmol/L (3.5-5.1)
[2024-12-28 14:52] LABS: Calcium 9.0 mg/dL (8.7-10.4)
[2024-12-28 14:54] LABS: Chloride 108 mmol/L (98-107); Sodium 146 mmol/L (136-145)
[2024-12-28 14:57] LABS: BUN/Creatinine Ratio 17.1 (10.0-20.0); Glucose 95 mg/dL (74-106)
[2024-12-28 14:58] LABS: Blood Urea Nitrogen 24 mg/dL (9-23)
[2024-12-28] MEDS: FUROSEMIDE 40 MG/4 ML VIAL ONE (15:55)
[2024-12-28] MEDS: FUROSEMIDE 40 MG/4 ML VIAL IV ONE (15:55)
--- NOTE | 2024-12-28 20:19 | DVH ---
Procedure: NM NM MAG3 RENAL SCAN Exam Date: 12/28/2024 03:14 PM. Clinical History: Left hydronephrosis Comparison Study: XY PERCUTANEOUS NEPHROSTOMY on DOS: 12/28/24, US KIDNEY on DOS: 12/27/24, US BLADDER on DOS: 12/27/24 Nuclear Medicine Renal Scan with Lasix. Technique: Following the intravenous administration of 8.5 mCi of technetium 99m labeled MAG-3 , flow images were acquired in one second intervals. This was followed by functional imaging of the kidneys in the posterior projection which were obtained at 20 seconds intervals reconstructed into 2 minute frames for a total of 34 minutes. 40 mg of Lasix were given IV at the 10 minute benjamin. Flow curves and functional renogram curves were generated. Split function data were generated from the first three minutes of the study. Findings: The flow study reveals prompt visualization of both kidneys with normal flow bilaterally. The kidneys are normal size, location and contour. The functional data was obtained with the renal pelvis included in the region of interest: Left: Peak time on the left is 38 minutes. Peak to 1/2 peak on the left is n/a minutes. Diuretic T 1/2 on the left is n/a minutes. Right: Peak time on the right is 6.5 minutes. Peak to 1/2 peak on the right is 14 minutes. Diuretic T 1/2 on the right is 4.5 minutes. Split function is 37 % on the left and 63 % on the right. IMPRESSION: Split function is 37 % on the left and 63 % on the right. Left kidney demonstrates no excretion and is nonresponsive to Lasix administration suggesting functional obstruction. Clinical correlation advised.
[2024-12-29 05:00] VITALS: BP 123/74; PULSE 61; RESP 18; TEMP 97.9; O2SAT 96
[2024-12-29 08:47] VITALS: BP 126/96; PULSE 65; RESP 16; TEMP 97.8; O2SAT 96
[2024-12-29 12:03] LABS: Anion Gap 9 (5-15); Carbon Dioxide 26 mmol/L (20-31); Potassium 4.3 mmol/L (3.5-5.1); Sodium 143 mmol/L (136-145)
[2024-12-29 12:04] LABS: Calcium 8.8 mg/dL (8.7-10.4)
[2024-12-29 12:07] LABS: Chloride 108 mmol/L (98-107)
[2024-12-29 12:09] LABS: BUN/Creatinine Ratio 16.1 (10.0-20.0); Blood Urea Nitrogen 22 mg/dL (9-23); Glucose 101 mg/dL (74-106)
--- NOTE | 2024-12-29 12:41 | DVHPN2 ---
Subjective feeling well with minimal pain s/p nephrostomy tube Reviewed: H&P Changes from previous H/P or p: No Changes Objective Vitals Vital Signs Date Time Temp Pulse Resp B/P (MAP) Pulse Ox O2 Delivery O2 Flow Rate FiO2 12/29/24 08:47 97.8 65 16 126/96 (106) 96 97.8 12/28/24 20:00 Room Air* 0 21 Intake/Output Intake and Output 12/29/24 07:00 Intake Total 1000 ml Output Total 400 ml Balance 600 ml Intake Oral 1000 ml Drainage Total 400 ml # Voids 5 # Bowel Movements 1 General Appearance: Alert, Oriented X3 HEENT: Atraumatic Lungs: Clear to auscultation Cardiovascular: Regular rate, Normal S1, Normal S2 Abdomen: Normal bowel sounds Medications Current Medications Medications Dose Ordered Sig/Jorge Route Start Time Stop Time Status Last Admin Dose Admin Metoprolol Succinate 25 mg DAILY PO 12/27/24 10:00 12/29/24 08:46 25 MG Atorvastatin Calcium 10 mg HS PO 12/26/24 22:00 12/28/24 21:48 10 MG Ceftriaxone Sodium 50 ml @ 100 mls/hr DAILY@09 IV 12/27/24 09:00 12/29/24 08:45 100 MLS/HR Acetaminophen/ Hydrocodone Bitart 1 tab Q4HP PRN PO 12/26/24 19:30 Temazepam 15 mg QHSP PRN PO 12/26/24 19:30 Ondansetron HCl 4 mg Q4HP PRN IV 12/26/24 19:30 Acetaminophen 650 mg Q6HP PRN PO 12/26/24 19:30 Amlodipine Besylate 5 mg BID PO 12/26/24 22:15 12/29/24 08:46 5 MG Laboratory Results Laboratory Tests 12/27/24 05:05 12/29/24 11:06 Chemistry Test 12/28/24 14:06 12/29/24 11:06 Calcium Level 9.0 mg/dL (8.7-10.4) 8.8 mg/dL (8.7-10.4) Urinalysis Test 12/26/24 13:44 Urine Color Dark-red (Yellow) Urine Clarity Ex.turbid (Clear) Urine pH 6.0 (5.0-9.0) Urine Specific [place] 1.025 (1.001-1.035) Urine Protein 2+ (Negative) H Urine Ketones Negative (Negative) Urine Blood 3+ /uL (Negative) H Urine Nitrite Negative (Negative) Urine Bilirubin Negative (Negative) Urine Urobilinogen Normal mg/dL (Negative) Urine Leukocyte Esterase Negative /uL (Negative) Urine RBC [id number] /hpf (0 - 3) Urine Microscopic WBC 2052 /HPF (0-3) H Urine Squamous Epithelial Cells None seen /hpf (<5) Urine Bacteria None seen /hpf (None Seen) Urine Glucose Normal mg/dL (Normal) Microbiology Microbiology Date/Time Source Procedure Growth Status 12/28/24 12:23 Urine - Kidney Urine Culture - Preliminary No growth Resulted Assessment/Plan Assessment/Plan Hematuria Acute cystitis Hypertension Continue IV ceftriaxone s/p nephrostomy monitor cbc and bmp Having some red urine on bag monitor creatinine Dispo: Possible dc tomorrow Plan discussed with: Patient Date of Service: Dec 29, 2024 Billing Provider: CHA VELA MD Common Visit Codes: [id number] INP/OBS CARE(HIGH) CHA VELA MD Dec 29, 2024 12:41
[2024-12-29 13:00] VITALS: BP 110/68; PULSE 53; RESP 18; TEMP 98.2; O2SAT 96
[2024-12-29 17:00] VITALS: BP 120/66; PULSE 66; RESP 18; TEMP 97.5; O2SAT 96
[2024-12-29 20:00] VITALS: RESP 16
[2024-12-29 21:00] VITALS: BP 112/64; PULSE 61; RESP 17; TEMP 98.2; O2SAT 97
[2024-12-30 01:00] VITALS: BP 119/71; PULSE 60; RESP 16; TEMP 98.1; O2SAT 97
[2024-12-30 05:00] VITALS: BP 126/84; PULSE 57; RESP 16; TEMP 98.1; O2SAT 97
[2024-12-30 07:56] VITALS: RESP 16
[2024-12-30 09:00] VITALS: BP 110/62; PULSE 65; RESP 16; TEMP 98; O2SAT 95
--- NOTE | 2024-12-30 11:03 | DVHPN2 ---
Progress Note - Dictate Date Seen: Dec 30, 2024 Has the PT tested + for MRSA If YES, has PT been informed?: No Medical Necessity Reason Pt with a Central, PICC or Fol: Yes Medical Necessity Reason Severe left hydronephrosis, s/p left PNT placement by IR service 12/28/24 vital signs Vital Sign Date Time Temp Pulse Resp B/P (MAP) Pulse Ox O2 Delivery O2 Flow Rate FiO2 12/30/24 09:00 98.0 65 16 110/62 (78) 95 98.0 12/30/24 07:56 Room Air* 0 21 Total Intake and Output 12/29/24 12/29/24 12/30/24 15:00 23:00 07:00 Intake Total 50 ml 840 ml 300 ml Output Total 550 ml 325 ml Balance 50 ml 290 ml -25 ml medications Current Medications Medications Dose Ordered Sig/Jorge Route Start Time Stop Time Status Last Admin Dose Admin Metoprolol Succinate 25 mg DAILY PO 12/27/24 10:00 12/30/24 09:00 25 MG Atorvastatin Calcium 10 mg HS PO 12/26/24 22:00 12/29/24 22:21 10 MG Ceftriaxone Sodium 50 ml @ 100 mls/hr DAILY@09 IV 12/27/24 09:00 12/30/24 09:01 100 MLS/HR Acetaminophen/ Hydrocodone Bitart 1 tab Q4HP PRN PO 12/26/24 19:30 Temazepam 15 mg QHSP PRN PO 12/26/24 19:30 Ondansetron HCl 4 mg Q4HP PRN IV 12/26/24 19:30 Acetaminophen 650 mg Q6HP PRN PO 12/26/24 19:30 Amlodipine Besylate 5 mg BID PO 12/26/24 22:15 12/30/24 09:00 5 MG objective PATIENT: TRENT SANTORO ACCT: [id number] UNIT: [id number] : 1955 LOC: CENTRAL ROOM / BED: 0206 / A AGE / SEX: 69 / M ADM STATUS: ADM IN SERVICE 1345 ORDERING PHYSICIAN: EDDIE BRIDGES MD PROCEDURE(s): KDF - NM MAG3 RENAL SCAN REASON: Left hydronephrosis ORDER NUMBER(s): [id number], ACCESSION NUMBER(s): [id number] Procedure: NM NM MAG3 RENAL SCAN Exam Date: 12/28/2024 03:14 PM. Clinical History: Left hydronephrosis Comparison Study: XY PERCUTANEOUS NEPHROSTOMY on DOS: 12/28/24, US KIDNEY on DOS: 12/27/24, US BLADDER on DOS: 12/27/24 Nuclear Medicine Renal Scan with Lasix. Technique: Following the intravenous administration of 8.5 mCi of technetium 99m labeled MAG-3 , flow images were acquired in one second intervals. This was followed by functional imaging of the kidneys in the posterior projection which were obtained at 20 seconds intervals reconstructed into 2 minute frames for a total of 34 minutes. 40 mg of Lasix were given IV at the 10 minute benjamin. Flow curves and functional renogram curves were generated. Split function data were generated from the first three minutes of the study. Findings: The flow study reveals prompt visualization of both kidneys with normal flow bilaterally. The kidneys are normal size, location and contour. The functional data was obtained with the renal pelvis included in the region of interest: Left: Peak time on the left is 38 minutes. Peak to 1/2 peak on the left is n/a minutes. Diuretic T 1/2 on the left is n/a minutes. Right: Peak time on the right is 6.5 minutes. Peak to 1/2 peak on the right is 14 minutes. Diuretic T 1/2 on the right is 4.5 minutes. Split function is 37 % on the left and 63 % on the right. IMPRESSION: Split function is 37 % on the left and 63 % on the right. Left kidney demonstrates no excretion and is nonresponsive to Lasix administration suggesting functional obstruction. Clinical correlation advised. ATED BY: ELEUTERIO RAMOS MD DICTATED DATE/TIME: 12/28/242016 SIGNED BY: ELEUTERIO RAMOS MD SIGNED DATE/TIME: 12/28/242016 CC: laboratory and microbiology Laboratory Tests 12/29/24 11:06 12/27/24 05:05 Test 12/29/24 11:06 Range/Units Serum Glucose 101 74-106 mg/dL Problem List Severe left hydronephrosis with 37% renal function. s/p left PNT placement Assessment/Plan Left hydronephrosis, severe Left renal stones Hematuria Dysuria Plan: Outpatient management of left hydronephrosis. Cystoscopy with left RPG and URS TBA Plan discussed with: Other EDDIE BRIDGES MD Dec 30, 2024 11:03
[2024-12-30] MEDS ORDERED: ATOR20TA50 PO (12:10)
[2024-12-30] MEDS ORDERED: METO-6 PO (12:10)
[2024-12-30] MEDS ORDERED: AML5T PO (12:10)
[2024-12-30 12:19] LABS: Potassium 4.1 mmol/L (3.5-5.1); Sodium 145 mmol/L (136-145)
[2024-12-30 12:20] LABS: Anion Gap 8 (5-15); Calcium 8.8 mg/dL (8.7-10.4); Carbon Dioxide 28 mmol/L (20-31); Chloride 109 mmol/L (98-107)
[2024-12-30 12:24] VITALS: BP 119/71; PULSE 59; RESP 16; TEMP 97.9; O2SAT 95
[2024-12-30 12:25] LABS: BUN/Creatinine Ratio 14.1 (10.0-20.0); Blood Urea Nitrogen 19 mg/dL (9-23); Glucose 81 mg/dL (74-106)
[2024-12-30 12:58] VITALS: BP 119/71; PULSE 59; RESP 18; TEMP 97.9; O2SAT 95
--- NOTE | 2024-12-30 18:40 | DVHDS2 ---
Discharge Summary Date of Admission Dec 26, 2024 at 19:24 Date of Discharge: Dec 30, 2024 Labs/Diagnostic Data: Laboratory Results Test 12/30/24 11:28 12/27/24 13:16 12/27/24 05:05 12/26/24 13:44 Sodium Level 145 mmol/L (136-145) Potassium Level 4.1 mmol/L (3.5-5.1) Chloride Level 109 mmol/L (98-107) Carbon Dioxide Level 28 mmol/L (20-31) Anion Gap 8 (5-15) Blood Urea Nitrogen 19 mg/dL (9-23) Creatinine 1.35 mg/dL (0.700-1.30) Glomerular Filtration Rate Calc 57 mL/min (>90) BUN/Creatinine Ratio 14.1 (10.0-20.0) Serum Glucose 81 mg/dL (74-106) Calcium Level 8.8 mg/dL (8.7-10.4) Prothrombin Time 10.1 sec (9.3-11.8) Prothrombin Time INR 0.95 (0.9-1.15) Activated Partial Thromboplast Time 28.3 SEC (24.5-34.5) White Blood Count 6.0 10^3/uL (4.4-10.8) Red Blood Count 4.82 10^6/uL (4.5-5.90) Hemoglobin 15.0 g/dL (13.5-17.5) Hematocrit 44.1 % (41.0-53.0) Mean Corpuscular Volume 91.4 fL (80.0-100.0) Mean Corpuscular Hemoglobin 31.0 pg (28.0-32.0) Mean Corpuscular Hemoglobin Concent 33.9 g/dL (32.0-36.0) Red Cell Distribution Width 14.7 % (11.8-14.3) Platelet Count 186 10^3/uL (140-450) Mean Platelet Volume 8.5 fL (6.9-10.8) Neutrophils (%) (Auto) 65.7 % (37.0-80.0) Lymphocytes (%) (Auto) 25.3 % (10.0-50.0) Monocytes (%) (Auto) 6.7 % (0.0-12.0) Eosinophils (%) (Auto) 1.7 % (0.0-7.0) Basophils (%) (Auto) 0.6 % (0.0-2.0) Neutrophils # (Auto) 4.0 10 ^3/uL (1.6-8.6) Lymphocytes # (Auto) 1.5 10 ^3/uL (0.4-5.4) Monocytes # (Auto) 0.4 10 ^3/uL (0-1.3) Eosinophils # (Auto) 0.1 10 ^3/uL (0-0.8) Basophils # (Auto) 0 10 ^3/uL (0-0.2) Nucleated Red Blood Cells 0.1 % Urine Color Dark-red (Yellow) Urine Clarity Ex.turbid (Clear) Urine pH 6.0 (5.0-9.0) Urine Specific [place] 1.025 (1.001-1.035) Urine Protein 2+ (Negative) Urine Ketones Negative (Negative) Urine Blood 3+ /uL (Negative) Urine Nitrite Negative (Negative) Urine Bilirubin Negative (Negative) Urine Urobilinogen Normal mg/dL (Negative) Urine Leukocyte Esterase Negative /uL (Negative) Urine RBC 450841 /hpf (0 - 3) Urine Microscopic WBC 2052 /HPF (0-3) Urine Squamous Epithelial Cells None seen /hpf (<5) Urine Bacteria None seen /hpf (None Seen) Urine Glucose Normal mg/dL (Normal) Other Laboratory Tests 12/30/24 11:28 12/27/24 05:05 Brief Hx & Hospital Course: 69-year-old male presents for evaluation of urinary symptoms. Patient reports a one day history of developing dysuria with urgency and hematuria. Denies fever or chills. No abdominal pain. Had nephrostomy tube urology recommended outpatient cystoscopy Condition at Discharge: Good Final Diagnosis/Problems List YULISA due obstructive uropathy hydronephrosis Discharge Disposition: Home Discharge Instruct/Medications Diet: Regular Activity: No Restrictions, As Tolerated Follow Up/Referral: PCP and urology in 7 days Medications: amlodipine, metoprolol Scheduled Amlodipine Besylate (Norvasc Tablet), 5 MG PO BID Atorvastatin Calcium (Atorvastatin Calcium), 10 MG PO HS Metoprolol Succinate (Toprol Xl), 25 MG PO DAILY Discharge Statement: "Patient was advised to return to the ER or call 911 if any headaches, dizziness, shortness of breath, chest pain, abdominal pain, bleeding, fevers, or worsening of medical condition. Patient was counseled about treatment plan, medications, possible side effects, patientverbalized understanding. All questions were answered to the best of my ability. This discharge took greater then 30 minutes in planning, reviewing documentation, counseling the patient, and discussing with other team members." ASSESSMENT ASSESSMENT Assessment YULISA due obstructive uropathy hydronephrosis Date of Service: Dec 30, 2024 Billing Provider: CHA VELA MD Common Visit Codes: 84018-KQI/OBS DISCH DAY >30min CHA VELA MD Dec 30, 2024 18:40
== END 2024-12-30 15:00 | disposition home or self-care (01) | DRG 690 ==
LOC: ER 12:58 → OVERFLOW 19:24 → CENTRAL 12-27 18:17
PROVIDERS: ADMIT Hospitalist; ATTEND Hospitalist
PROC: 0T9430Z Drainage of Left Kidney Pelvis with Drainage Device, Percutaneous Approach (ICD-10-PCS; principal; 2024-12-28)
PROC: BT121ZZ Fluoroscopy of Left Kidney using Low Osmolar Contrast (ICD-10-PCS; 2024-12-28)
DX: N13.6 Pyonephrosis (principal); N17.9 Acute kidney failure, unspecified; I10 Essential (primary) hypertension; E78.5 Hyperlipidemia, unspecified; Z82.49 Family history of ischemic heart disease and other diseases of the circulatory system; Z79.899 Other long term (current) drug therapy
CPT/HCPCS: 36415; 50430; 50432; 74176; 74425; 76775; 76857; 76942; 78707; 80048; 81001; 85025; 85610; 85730; 87086; 93005; 96360; 99152; G0378; J2250

== ENCOUNTER 2025-02-10 18:32 | Inpatient (IN) | payer OTHER ==
[~2025-02-10] VITALS: Ht 182.9 cm; Wt 79.7 kg
[~2025-02-10 18:32] MED LIST: AML5T PO; ATOR20TA50 PO; METO-6 PO
--- NOTE | 2025-02-10 18:45 | ED.PDOC ---
General HPI Comments Discharge diagnosis from 01/09/25: YULISA due obstructive uropathy hydronephrosis HPI: 70 year old male presents to the ED with a chief complaint of hematuria onset today. Per EMS, patient has a blood in nephrostomy tube, began this morning. Patient had Nephrostomy tube placed due to pyelonephritis. Patient states he began experiencing dizziness, noticed blood in nephrostomy tube, is tender around tube. Denies fever, chills, headache, nausea, vomiting, diarrhea, chest pain, shortness of breath. No other symptoms or modifying factors present at this time. Initial Vitals BP: 161/97 HR: 113 RR: 18 O2 Sat: 97% Temp: 98.9 F Past Medical history: HTN, HLD Past Surgical history: pacemaker Medications: Amlodipine, Metoprolol Social History: Denies smoking, ETOH, and drug use. Allergies: NKDA SHEK: L NEPHROSTOMY TUBE BLEED. X 1 D. HPI: Poor Historian. REVIEW OF SYSTEMS: CONSTITUTIONAL: Denies acute: fever, diaphoresis, chills, generalized weakness. HEAD: Denies acute: headache, photophobia Eyes: Denies acute: Double vision, vision loss, eye pain, eye discharge. EARS: Denies acute: tinnitus, hearing loss, ear discharge, ear pain, THROAT: Denies acute: sore throat, swelling, difficulty swallowing , pain with swallowing, change in voice. NECK: Denies acute: neck pain, neck swelling, stiff neck. HEART: Denies acute : chest pain, palpitations, LUNGS: Denies acute: SOB, wheezing, cough, hemoptysis ABDOMEN: Denies acute: abdominal pain, Nausea, Vomiting, diarrhea, melena , hematemesis, hematochezia SKIN: Denies acute: rash, redness, lesions, itchiness. EXTREMITIES: Denies acute: calf pain, numbness, tingling, weakness, denies pain in extremity. Denies acute: Low back pain. Neuro: Denies acute: focal neurological deficit, motor or sensory focal neurological deficit, tremors, seizure like activity, confusion, dizziness, change in mental status, loss of bowel or bladder function, cauda equina like symptoms. : Denies acute: dysuria, hematuria, flank pain, increase in urinary frequency. PSYCH: Denies acute: hallucination, suicidal ideation, homicidal ideation. PHYSICAL EXAM: General: ----no----acute distress, awake and alert. Head: normocephalic, atraumatic. No raccoon's eyes, no barnes sign. Neck: supple, trachea is midline, no swelling. Throat: Normal phonation. Eyes:, no erythema, no purulent discharge, no proptosis, no icterus. Heart: regular tachycardia, no significant murmur appreciated. Lungs: no apparent respiratory distress, Able to speak in full sentences. No wheezing, no rhonchi, no crackles. No stridors Clear to auscultation bilaterally. Abdomen: non tender to palpation, non distended, soft, no guarding, no rebound, + bowel sounds. Neuro: Awake, Alert, oriented to name, self, situation, follows commands GCS=15. Speech is normal. Skin: no petechia, no purpura, no cyanosis, non-pale, not jaundice. Lower extremities: --no - Pitting edema no deformity, no focal swelling, no calf TTP. Makes eye contact. moves all four extremities. Face: no apparent facial droop. No CVA tenderness to percussion bilaterally. Evaluation of the left nephrostomy site reveals minimal bleeding of the nephrostomy site. There is blood noted in the nephrostomy bag and tubing. Ambulating in the ED independently. No nystagmus. No nuchal rigidity, Kernig's sign, Brudzinski's sign, no meningeal signs. ED COURSE: DISCLAIMER: This medical document was created using an electronic medical record system with voice recognition software and computerized dictation system. Although this document has been carefully reviewed, there might still be some phonetic and typographical errors. Occasional wrong-word or "sound-alike" substitutions may have occurred due to the inherent limitations of voice recognition software. These areas are purely typographical due to imperfections of the software programs and do not reflect any compromise in the patient's medical care. Please read the chart carefully and recognize, using context, where these substitutions have occurred. Time Seen by MD: 18:30 Reviewed notes: Medications, Allergies Allergies: Coded Allergies: NO KNOWN ALLERGIES (Unverified , 12/26/24) Home Meds Active Scripts Metoprolol Succinate (Toprol Xl) 50 Mg Tab, 25 MG PO DAILY for 90 Days, #45 TAB Prov:CHA VELA MD 12/30/24 Atorvastatin Calcium (ATORVASTATIN CALCIUM) 20 Mg Tab, 10 MG PO HS for 90 Days, #45 TAB Prov:CHA VELA MD 12/30/24 Amlodipine Besylate (NORVASC TABLET) 5 Mg Tb, 5 MG PO BID for 90 Days, #180 TAB Prov:CHA VELA MD 12/30/24 Information Source: Patient, Emergency Med Personnel Mode of Arrival: Ambulatory Timing: Hours Duration: Since onset Prehospital treatment: None Past Medical History PAST MEDICAL HISTORY: High Lipids, HTN Surgical History: Cholecystectomy Family History Family History: Reviewed,noncontributory to illness Social History Smoker: Non-Smoker Alcohol: Denies ETOH Use Drugs: Denies Drug Use Lives In: Home Was a procedure done? Was a procedure done?: No X-Ray, Labs, Meds, VS Vital Signs Date Time Temp Pulse Resp B/P (MAP) Pulse Ox O2 Delivery O2 Flow Rate FiO2 02/10/25 20:50 98.4 98 18 153/91 (111) 98 98.4 02/10/25 19:01 98.9 113 18 167/97 97 98.9 Lab Test 02/10/25 20:40 02/10/25 19:26 02/10/25 19:21 02/10/25 19:12 Range/Units Troponin I High Sensitivity Pending 7 </=54 ng/L Lactic Acid Level 1.8 0.4-2.0 mmol/L Urine Color Pending Urine Clarity Pending Urine pH Pending Urine Specific [place] Pending Urine Protein Pending Urine Ketones Pending Urine Blood Pending Urine Nitrite Pending Urine Bilirubin Pending Urine Urobilinogen Pending Urine Leukocyte Esterase Pending Urine RBC Pending Urine Microscopic WBC Pending Urine Squamous Epithelial Cells Pending Urine Bacteria Pending Urine Glucose Pending White Blood Count 8.1 4.4-10.8 10^3/uL Red Blood Count 5.03 4.5-5.90 10^6/uL Hemoglobin 15.4 13.5-17.5 g/dL Hematocrit 45.0 41.0-53.0 % Mean Corpuscular Volume 89.4 80.0-100.0 fL Mean Corpuscular Hemoglobin 30.7 28.0-32.0 pg Mean Corpuscular Hemoglobin Concent 34.4 32.0-36.0 g/dL Red Cell Distribution Width 13.8 11.8-14.3 % Platelet Count 211 140-450 10^3/uL Mean Platelet Volume 8.2 6.9-10.8 fL Neutrophils (%) (Auto) 72.9 37.0-80.0 % Lymphocytes (%) (Auto) 15.8 10.0-50.0 % Monocytes (%) (Auto) 9.6 0.0-12.0 % Eosinophils (%) (Auto) 1.2 0.0-7.0 % Basophils (%) (Auto) 0.5 0.0-2.0 % Neutrophils # (Auto) 5.9 1.6-8.6 10 ^3/uL Lymphocytes # (Auto) 1.3 0.4-5.4 10 ^3/uL Monocytes # (Auto) 0.8 0-1.3 10 ^3/uL Eosinophils # (Auto) 0.1 0-0.8 10 ^3/uL Basophils # (Auto) 0 0-0.2 10 ^3/uL Nucleated Red Blood Cells 0.2 % Sodium Level 142 136-145 mmol/L Potassium Level 3.9 3.5-5.1 mmol/L Chloride Level 110 H 98-107 mmol/L Carbon Dioxide Level 22 20-31 mmol/L Anion Gap 10 5-15 Blood Urea Nitrogen 17 9-23 mg/dL Creatinine 1.18 0.700-1.30 mg/dL Glomerular Filtration Rate Calc 66 >90 mL/min BUN/Creatinine Ratio 14.4 10.0-20.0 Serum Glucose 114 H 74-106 mg/dL Calcium Level 9.1 8.7-10.4 mg/dL Magnesium Level 2.3 1.6-2.6 mg/dL Total Bilirubin 0.5 0.2-1.0 mg/dL Aspartate Amino Transferase (AST) 19 13-40 U/L Alanine Aminotransferase (ALT) 33 7-40 U/L Alkaline Phosphatase 88 46-116 U/L Total Protein 6.7 5.7-8.2 g/dL Albumin 4.3 3.2-4.8 g/dL Current Medications Medications (Trade) Dose Ordered Sig/Jorge Route Start Time Stop Time Status Last Admin Sodium Chloride 1,000 ml @ 1,000 mls/hr Q1H ONCE IV 02/10/25 20:00 02/10/25 20:59 DC 02/10/25 20:[address] [address] Ph: [phone] DIAGNOSTIC IMAGING Diagnostic Imaging Report : [id number] Signed PATIENT: TRENT SANTORO ACCT: [id number] UNIT: [id number] : 1955 LOC: ER ROOM / BED: / AGE / SEX: 70 / M ADM STATUS: REG ER SERVICE 744 ORDERING PHYSICIAN: KYM DELANEY DO PROCEDURE(s): ABPL - CT AB PEL WO CON-NO ORAL OR IV REASON: L NEPHROSTOMY TUBE BLEED ORDER NUMBER(s): [id number], ACCESSION NUMBER(s): [id number] EXAM: CT CT AB PEL WO CON-NO ORAL OR IV History: L NEPHROSTOMY TUBE BLEED Comparison Study: CT CT AB PEL WO CON-NO ORAL OR IV on DOS: 12/26/24 TECHNIQUE: Multidetector CT of the abdomen AND PELVIS without IV contrast. Axial, coronal and sagittal multiplanar reformats were obtained from the axial data set by the technologist. Radiation Dose Information: CT Dose: CTDI volume is 11.73 mGy. Dose-length product is 3.92 mGy*cm FINDINGS: Basilar atelectasis. Partially visualized heart is unremarkable. Status post cholecystectomy. 1.6 cm hepatic cyst. Mild hepatomegaly. Spleen, pancreas and right adrenal glands unremarkable. 2 cm indeterminate left adrenal nodule measuring up to 16 Hounsfield units. Additional 2.4 cm left adrenal nodule is noted measuring up to 7 Hounsfield units which may represent an adenoma. The right kidney and ureter are unremarkable. Severe left right renal Hydr onephrosis normal size ureter and abrupt tapering at the ureteropelvic junction. No obstructing calculus is noted. 1.7 x 1 cm coarse calcification of the lower pole of the left kidney. Left-sided percutaneous nephrostomy tube which appears to terminate within the cortex of the left renal lower pole. [id number] left-sided perinephric fat stranding with mild stranding within the subcutaneous fat adjacent to the nephrostomy tube. Exophytic left renal upper pole cysts measuring up to 1.9 cm. Mild wall thickening of the mildly distended Urinary bladder. Prostate measures 3.8 x 5.6 by 4.7 cm with prosthetic seeding. Small hiatal hernia. Mild gastric wall thickening which is most likely from inadequate distention. Small bowel loops are unremarkable. Appendix is unremarkable. Small to moderate amount of fecal material within the colon. Distal rectal wall thickening. No evidence of intraperitoneal free air or free fluid. No evidence of aortic aneurysm. Umgq-[id number]-[id number] atherosclerotic calcification of the aorta and bilateral iliacs. Significant lymphadenopathy. Small fat containing left inguinal hernia. Tiny fat containing umbilical hernia. No evidence of acute osseous abnormalities. Diffuse demineralization. IMPRESSION: Severe Left-sided Hydronephrosis with no obstructing calculus and abrupt tapering at the ureteropelvic junction. There is a malpositioned left-sided percutaneous nephrostomy tube terminating over the cortex of the left renal lower pole. Recommend clinical correlation. Lbpe-wi-dvxieinb fat stranding adjacent to The left kidney which is most likely from the Hydronephrosis. Mild wall thickening of the urinary bladder which may be due to inadequate distention. Correlation with urinalysis is recommended to exclude cystitis. Enlarged prostate with prostatic seeding. 2 cm indeterminate left adrenal nodule. Adrenal protocol CT / MRI should be considered for further evaluation. Distal rectal wall thickening. Correlate for proctitis/neoplasm. Additional findings as above. ATED BY: KELSEY HEIN DO DICTATED DATE/TIME: 02/10/252003 SIGNED BY: KELSEY HEIN DO SIGNED DATE/TIME: 02/10/252003 CC: Time of 1ST Reevaluation: 19:00 Reevaluation 1ST: Unchanged Patient Education/Counseling: Diagnosis, Treatment Family Education/Counseling: No Family Present Departure 1 Departure Time of Disposition: 21:01 Impression: Primary Impression: Nephrostomy tube bleed Additional Impression: Nephrostomy tube displaced Disposition: 09 ADMITTED INPATIENT Admit to: [facility] Condition: Guarded Discharged With: Self Critical Care Note Critical Care Time?: No I personally scribed for KYM DELANEY DO ([email or web address]) on 02/10/25 at 18:44. Electronically submitted by Samantha [email or web address]). I personally scribed for KYM DELANEY DO ([email or web address]) on 02/10/25 at 20:51. Electronically submitted by Samantha Brandon ([email or web address]). KYM DELANEY DO Feb 10, 2025 18:44
[2025-02-10 19:38] LABS: Hematocrit 45.0 % (41.0-53.0); Hemoglobin 15.4 g/dL (13.5-17.5); Mean Corpuscular Hemoglobin 30.7 pg (28.0-32.0); Mean Corpuscular Volume 89.4 fL (80.0-100.0); Nucleated Red Blood Cells % 0.2 %
[2025-02-10 19:50] LABS: Alanine Aminotransferase 33 U/L (7-40); Albumin 4.3 g/dL (3.2-4.8); Alkaline Phosphatase 88 U/L (46-116); Anion Gap 10 (5-15); BUN/Creatinine Ratio 14.4 (10.0-20.0); Blood Urea Nitrogen 17 mg/dL (9-23); Calcium 9.1 mg/dL (8.7-10.4); Carbon Dioxide 22 mmol/L (20-31); Potassium 3.9 mmol/L (3.5-5.1); Sodium 142 mmol/L (136-145); Total Protein 6.7 g/dL (5.7-8.2)
[2025-02-10 19:51] LABS: Bilirubin, Total 0.5 mg/dL (0.2-1.0)
[2025-02-10 19:52] LABS: Chloride 110 mmol/L (98-107); Glucose 114 mg/dL (74-106)
--- NOTE | 2025-02-10 20:07 | DVH ---
EXAM: CT CT AB PEL WO CON-NO ORAL OR IV History: L NEPHROSTOMY TUBE BLEED Comparison Study: CT CT AB PEL WO CON-NO ORAL OR IV on DOS: 12/26/24 TECHNIQUE: Multidetector CT of the abdomen AND PELVIS without IV contrast. Axial, coronal and sagittal multiplanar reformats were obtained from the axial data set by the technologist. Radiation Dose Information: CT Dose: CTDI volume is 11.73 mGy. Dose-length product is 3.92 mGy*cm FINDINGS: Basilar atelectasis. Partially visualized heart is unremarkable. Status post cholecystectomy. 1.6 cm hepatic cyst. Mild hepatomegaly. Spleen, pancreas and right adrenal glands unremarkable. 2 cm indeterminate left adrenal nodule measuring up to 16 Hounsfield units. Additional 2.4 cm left adrenal nodule is noted measuring up to 7 Hounsfield units which may represent an adenoma. The right kidney and ureter are unremarkable. Severe left right renal Hydronephrosis normal size ureter and abrupt tapering at the ureteropelvic junction. No obstructing calculus is noted. 1.7 x 1 cm coarse calcification of the lower pole of the left kidney. Left-sided percutaneous nephrostomy tube whi ch appears to terminate within the cortex of the left renal lower pole. Uwrc-ju-amafihfz left-sided perinephric fat stranding with mild stranding within the subcutaneous fat adjacent to the nephrostomy tube. Exophytic left renal upper pole cysts measuring up to 1.9 cm. Mild wall thickening of the mildly distended Urinary bladder. Prostate measures 3.8 x 5.6 by 4.7 cm with prosthetic seeding. Small hiatal hernia. Mild gastric wall thickening which is most likely from inadequate distention. Small bowel loops are unremarkable. Appendix is unremarkable. Small to moderate amount of fecal material within the colon. Distal rectal wall thickening. No evidence of intraperitoneal free air or free fluid. No evidence of aortic aneurysm. Jrox-sp-disqzyyp atherosclerotic calcification of the aorta and bilateral iliacs. Significant lymphadenopathy. Small fat containing left inguinal hernia. Tiny fat containing umbilical hernia. No evidence of acute osseous abnormalities. Diffuse demineralization. IMPRESSION: Severe Left-sided Hydronephrosis with no obstructing calculus and abrupt tapering at the ureteropelvic junction. There is a malpositioned left-sided percutaneous nephrostomy tube terminating over the cortex of the left renal lower pole. Recommend clinical correlation. Wkyb-im-dlazjlbk fat stranding adjacent to The left kidney which is most likely from the Hydronephrosis. Mild wall thickening of the urinary bladder which may be due to inadequate distention. Correlation with urinalysis is recommended to exclude cystitis. Enlarged prostate with prostatic seeding. 2 cm indeterminate left adrenal nodule. Adrenal protocol CT / MRI should be considered for further evaluation. Distal rectal wall thickening. Correlate for proctitis/neoplasm. Additional findings as above.
[2025-02-10] MEDS: SODIUM CHLORIDE 0.9% 1,000 ML IV ONE (20:23)
[2025-02-10 21:02] LABS: Urine Budding Yeast MANY /hpf (None Seen); Urine Protein, UAD 1+ (Negative); Urine WBC Clumps PRESENT /hpf (None Seen)
[2025-02-10] MEDS ORDERED: HYDROcodone-ACET 5/325MG TAB PO PRN (22:15)
[2025-02-10] MEDS ORDERED: ACETAMINOPHEN 325 MG TAB PO PRN (22:15)
[2025-02-10] MEDS ORDERED: ONDANSETRON HCL 4 MG/2 ML VIAL IV PRN (22:15)
[2025-02-10] MEDS ORDERED: NITROGLYCERIN 0.4 MG SL TAB SL PRN (22:15)
[2025-02-10] MEDS ORDERED: DOCUSATE SOD 100 MG CAP PO PRN (22:15)
[2025-02-10] MEDS ORDERED: MORPHINE SULFATE INJ 2 MG/ml SYRG IV PRN ×2 (22:15)
[2025-02-10 23:01] VITALS: BP 150/92; PULSE 110; RESP 20; TEMP 98.4; O2SAT 97
[2025-02-10] MEDS: ENOXAPARIN SOD 40 MG/0.4 ML SYRINGE SC SCH (23:24)
[2025-02-11 05:00] VITALS: BP 137/84; PULSE 108; RESP 19; TEMP 99.2; O2SAT 96
[2025-02-11 05:39] LABS: Hematocrit 41.1 % (41.0-53.0); Hemoglobin 13.9 g/dL (13.5-17.5); Mean Corpuscular Hemoglobin 30.5 pg (28.0-32.0); Mean Corpuscular Volume 90.0 fL (80.0-100.0); Nucleated Red Blood Cells % 0.1 %
[2025-02-11 06:00] LABS: Alanine Aminotransferase 28 U/L (7-40); Albumin 4.0 g/dL (3.2-4.8); Alkaline Phosphatase 74 U/L (46-116); Anion Gap 11 (5-15); BUN/Creatinine Ratio 9.0 (10.0-20.0); Blood Urea Nitrogen 12 mg/dL (9-23); Carbon Dioxide 22 mmol/L (20-31); Potassium 3.6 mmol/L (3.5-5.1); Sodium 145 mmol/L (136-145); Total Protein 6.3 g/dL (5.7-8.2)
[2025-02-11 06:01] LABS: Bilirubin, Total 0.5 mg/dL (0.2-1.0); Calcium 8.7 mg/dL (8.7-10.4); Chloride 112 mmol/L (98-107); Glucose 111 mg/dL (74-106)
[2025-02-11] MEDS ORDERED: ASPI-498 PO (07:42)
[2025-02-11] MEDS ORDERED: METH5000 PO (07:42)
[2025-02-11] MEDS ORDERED: CHOL20004 PO (07:42)
[2025-02-11] MEDS ORDERED: POTA80TA PO (07:42)
[2025-02-11 08:00] VITALS: PULSE 105; RESP 18; O2SAT 95
[2025-02-11 09:00] VITALS: BP 110/60; PULSE 105; RESP 19; TEMP 99.1; O2SAT 95
[2025-02-11 13:00] VITALS: BP 114/77; PULSE 101; RESP 18; TEMP 98.4; O2SAT 97
[2025-02-11 17:00] VITALS: BP 134/89; PULSE 89; RESP 18; TEMP 98.3; O2SAT 97
[2025-02-11 21:00] VITALS: BP 133/83; PULSE 104; RESP 18; TEMP 97.6; O2SAT 96
[2025-02-12] VITALS (7 sets, daily range): BP systolic 107–146; BP diastolic 61–87; PULSE 75–98; RESP 16–20; TEMP 97.2–98.1; O2SAT 96–98
--- NOTE | 2025-02-12 12:43 | DVHHP2 ---
History of Present Illness HPI 70 year old male presents to the ED with a chief complaint of hematuria onset today. Per EMS, patient has a blood in nephrostomy tube, began this morning. Patient had Nephrostomy tube placed due to pyelonephritis. Patient states he began experiencing dizziness, noticed blood in nephrostomy tube, is tender around tube. Denies fever, chills, headache, nausea, vomiting, diarrhea, chest pain, shortness of breath. No other symptoms or modifying factors present at this time. Home Meds Active Scripts Metoprolol Succinate (Toprol Xl) 50 Mg Tab, 25 MG PO DAILY for 90 Days, #45 TAB Prov:CHA VELA MD 12/30/24 Atorvastatin Calcium (ATORVASTATIN CALCIUM) 20 Mg Tab, 10 MG PO HS for 90 Days, #45 TAB Prov:CHA VELA MD 12/30/24 Amlodipine Besylate (NORVASC TABLET) 5 Mg Tb, 5 MG PO BID for 90 Days, #180 TAB Prov:CHA VELA MD 12/30/24 Reported Medications Cholecalciferol (D3) 50 Mcg Cap, 50 MCG PO, CAP 02/11/25 Mecobalamin (B-12 QUICK DISSOLVE) 5,000 Mcg Tab, 2500 MCG PO, TAB 02/11/25 Potassium Gluconate (POTASSIUM GLUCONATE) 80 Mg Tab, 99 MG PO, TAB 02/11/25 Aspirin (ASPIRIN 81) 81 Mg Tab, 81 MG PO, TAB 02/11/25 Past Medical History Patient Family History: Hypertension G8 MOTHER Review of Systems Constitutional: No symptom reported Ears, Nose, & Throat: No symptom reported Eyes: No symptom reported Pulmonary/Respiratory: No symptom reported H&P Exam Vital Signs Vital Signs Date Time Temp Pulse Resp B/P (MAP) Pulse Ox O2 Delivery O2 Flow Rate FiO2 02/12/25 08:48 75 16 128/71 (90) 97 02/12/25 08:00 Room Air* 0 21 02/12/25 05:00 97.2 97.2 General Appeara: Well developed Head Exam: Normal inspection Neck Exam: Normal inspection Pulmonary/Respiratory: Normal inspection Cardiovascular/Chest: Normal inspection SEPSIS Sepsis Screen Date sepsis recognized/suspect: Feb 10, 2025 Time Sepsis recognized/suspect: 2249 Recent Procedure: Yes On Antibiotic Therapy: Yes Respiratory Rate >20: No Heart Rate >90: Yes Temp<36 C (96.8 F) or >38.3 C: No SBP <90 or MAP <65 mmHG: No New Acute Mental Status Change: No Is the patient on CPAP, BIPAP,: No Physician Orders * Urology Consult (02/12/25 12:42) Vital Signs Date Time Temp Pulse Resp B/P (MAP) Pulse Ox O2 Delivery O2 Flow Rate FiO2 02/12/25 08:48 75 16 128/71 (90) 97 02/12/25 08:00 98 20 Room Air* 0 21 02/12/25 05:00 97.2 84 18 128/87 (101) 97 97.2 Labs/Xrays Labs Test 02/11/25 05:01 02/10/25 20:40 02/10/25 19:26 02/10/25 19:21 Range/Units White Blood Count 7.0 4.4-10.8 10^3/uL Red Blood Count 4.56 4.5-5.90 10^6/uL Hemoglobin 13.9 13.5-17.5 g/dL Hematocrit 41.1 41.0-53.0 % Mean Corpuscular Volume 90.0 80.0-100.0 fL Mean Corpuscular Hemoglobin 30.5 28.0-32.0 pg Mean Corpuscular Hemoglobin Concent 33.9 32.0-36.0 g/dL Red Cell Distribution Width 14.0 11.8-14.3 % Platelet Count 204 140-450 10^3/uL Mean Platelet Volume 8.1 6.9-10.8 fL Neutrophils (%) (Auto) 71.0 37.0-80.0 % Lymphocytes (%) (Auto) 16.6 10.0-50.0 % Monocytes (%) (Auto) 10.6 0.0-12.0 % Eosinophils (%) (Auto) 1.3 0.0-7.0 % Basophils (%) (Auto) 0.5 0.0-2.0 % Neutrophils # (Auto) 5.0 1.6-8.6 10 ^3/uL Lymphocytes # (Auto) 1.2 0.4-5.4 10 ^3/uL Monocytes # (Auto) 0.7 0-1.3 10 ^3/uL Eosinophils # (Auto) 0.1 0-0.8 10 ^3/uL Basophils # (Auto) 0 0-0.2 10 ^3/uL Nucleated Red Blood Cells 0.1 % Sodium Level 145 136-145 mmol/L Potassium Level 3.6 3.5-5.1 mmol/L Chloride Level 112 H 98-107 mmol/L Carbon Dioxide Level 22 20-31 mmol/L Anion Gap 11 5-15 Blood Urea Nitrogen 12 9-23 mg/dL Creatinine 1.34 H 0.700-1.30 mg/dL Glomerular Filtration Rate Calc 57 >90 mL/min BUN/Creatinine Ratio 9.0 L 10.0-20.0 Serum Glucose 111 H 74-106 mg/dL Calcium Level 8.7 8.7-10.4 mg/dL Total Bilirubin 0.5 0.2-1.0 mg/dL Aspartate Amino Transferase (AST) 14 13-40 U/L Alanine Aminotransferase (ALT) 28 7-40 U/L Alkaline Phosphatase 74 46-116 U/L Total Protein 6.3 5.7-8.2 g/dL Albumin 4.0 3.2-4.8 g/dL Troponin I High Sensitivity 7 </=54 ng/L Lactic Acid Level 1.8 0.4-2.0 mmol/L Urine Color Light-brown Yellow Urine Clarity Turbid H Clear Urine pH 6.5 5.0-9.0 Urine Specific [place] 1.009 1.001-1.035 Urine Protein 1+ H Negative Urine Ketones Negative Negative Urine Blood 3+ H Negative /uL Urine Nitrite Negative Negative Urine Bilirubin Negative Negative Urine Urobilinogen Normal Negative mg/dL Urine Leukocyte Esterase 3+ Negative /uL Urine RBC 102 0 - 3 /hpf Urine WBC Clumps Present None Seen /hpf Urine Microscopic WBC 726 H 0-3 /HPF Urine Squamous Epithelial Cells None seen <5 /hpf Urine Bacteria Few H None Seen /hpf Urine Yeast (Budding) Many None Seen /hpf Urine Glucose Normal Normal mg/dL Test 02/10/25 19:12 Range/Units Magnesium Level 2.3 1.6-2.6 mg/dL Assessment/Plan Primary Diagnosis THIS IS NOTE IS FOR SERVICES RENDERED ON 01/31/2025 flank pain hydronephrosis nephrostomy tube displacement hx of HTN CT abs indicates Severe Left-sided Hydronephrosis with no obstructing calculus and abrupt tapering at the ureteropelvic junction. There is a malpositioned left-sided percutaneous nephrostomy tube terminating over the cortex of the left renal lower pole. Recommend clinical correlation. [id number] fat stranding adjacent to The left kidney which is most likely from the Hydronephrosis. Mild wall thickening of the urinary bladder which may be due to inadequate distention. Correlation with urinalysis is recommended to exclude cystitis. Enlarged prostate with prostatic seeding. 2 cm indeterminate left adrenal nodule. Adrenal protocol CT / MRI should be considered for further evaluation. Distal rectal wall thickening. Correlate for proctitis/neoplasm. consult to IR for removal vs replacement pain control Plan discussed with: Patient BESTHANY Huang Kevin GILLESPIE Feb 12, 2025 12:43
--- NOTE | 2025-02-12 12:48 | DVHPN2 ---
Progress Note Date Seen: Feb 11, 2025 Medical Necessity Reason Pt with a Central, PICC or Fol: No Subjective Review of Systems: HEENT:Normal, CVS:Normal, RESPIRATORY:Normal Objective vital signs Vital Sign Date Time Temp Pulse Resp B/P (MAP) Pulse Ox O2 Delivery O2 Flow Rate FiO2 02/12/25 08:48 75 16 128/71 (90) 97 02/12/25 08:00 Room Air* 0 21 02/12/25 05:00 97.2 97.2 Total Intake and Output 02/11/25 02/11/25 02/12/25 15:00 23:00 07:00 Intake Total 1200 ml 155 ml Balance 1200 ml 155 ml medications Current Medications Medications Dose Ordered Sig/Jorge Route Start Time Stop Time Status Last Admin Dose Admin Acetaminophen/ Hydrocodone Bitart 1 tab Q4HP PRN PO 02/10/25 22:15 Ondansetron HCl 4 mg Q4HP PRN IV 02/10/25 22:15 Docusate Sodium 100 mg BIDPRN PRN PO 02/10/25 22:15 Acetaminophen 650 mg Q6HP PRN PO 02/10/25 22:15 Morphine Sulfate 2 mg Q4HPRN PRN IV 02/10/25 22:15 Enoxaparin Sodium 40 mg DAILY SC 02/10/25 22:15 02/12/25 09:58 40 MG Nitroglycerin 0.4 mg Q5MINP PRN SL 02/10/25 22:15 Morphine Sulfate 2 mg Q30M PRN IV 02/10/25 22:15 Ceftriaxone Sodium 50 ml @ 100 mls/hr DAILY IV 02/11/25 21:30 02/12/25 09:57 100 MLS/HR Examination: GENERAL:Normal, HEENT:Normal, NECK:Normal laboratory and microbiology Laboratory Tests 02/11/25 05:01 Test 02/11/25 05:01 Range/Units Serum Glucose 111 H 74-106 mg/dL Labs and/or images reviewed: Labs reviewed by me, Image(s) reviewed by me Problem List/Assessment/Plan Problem List/Assessment/Plan flank pain hydronephrosis nephrostomy tube displacement hx of HTN proctitis, acute CT abs indicates Severe Left-sided Hydronephrosis with no obstructing calculus and abrupt tapering at the ureteropelvic junction. There is a malpositioned left-sided percutaneous nephrostomy tube terminating over the cortex of the left renal lower pole. Recommend clinical correlation. [id number] fat stranding adjacent to The left kidney which is most likely from the Hydronephrosis. Mild wall thickening of the urinary bladder which may be due to inadequate distention. Correlation with urinalysis is recommended to exclude cystitis. Enlarged prostate with prostatic seeding. 2 cm indeterminate left adrenal nodule. Adrenal protocol CT / MRI should be considered for further evaluation. Distal rectal wall thickening. Correlate for proctitis/neoplasm. discussed with pt pt developed YULISA, consult to nephro pain is adequate awaiting for IR to evaluate for nephrostomy tube Plan discussed with: Patient My Orders My Orders Orders - HANY BEST DO Procedure Category Date Status Time * Urology Consult CONS 02/12/25 Verified 12:42 HANY BEST DO Feb 12, 2025 12:48
--- NOTE | 2025-02-12 12:49 | DVHPN2 ---
Progress Note Date Seen: Feb 12, 2025 Medical Necessity Reason Pt with a Central, PICC or Fol: No Subjective Patient reports: No new complaints Objective vital signs Vital Sign Date Time Temp Pulse Resp B/P (MAP) Pulse Ox O2 Delivery O2 Flow Rate FiO2 02/12/25 08:48 75 16 128/71 (90) 97 02/12/25 08:00 Room Air* 0 21 02/12/25 05:00 97.2 97.2 Total Intake and Output 02/11/25 02/11/25 02/12/25 15:00 23:00 07:00 Intake Total 1200 ml 155 ml Balance 1200 ml 155 ml medications Current Medications Medications Dose Ordered Sig/Jorge Route Start Time Stop Time Status Last Admin Dose Admin Acetaminophen/ Hydrocodone Bitart 1 tab Q4HP PRN PO 02/10/25 22:15 Ondansetron HCl 4 mg Q4HP PRN IV 02/10/25 22:15 Docusate Sodium 100 mg BIDPRN PRN PO 02/10/25 22:15 Acetaminophen 650 mg Q6HP PRN PO 02/10/25 22:15 Morphine Sulfate 2 mg Q4HPRN PRN IV 02/10/25 22:15 Enoxaparin Sodium 40 mg DAILY SC 02/10/25 22:15 02/12/25 09:58 40 MG Nitroglycerin 0.4 mg Q5MINP PRN SL 02/10/25 22:15 Morphine Sulfate 2 mg Q30M PRN IV 02/10/25 22:15 Ceftriaxone Sodium 50 ml @ 100 mls/hr DAILY IV 02/11/25 21:30 02/12/25 09:57 100 MLS/HR Examination: GENERAL:Normal, HEENT:Normal laboratory and microbiology Laboratory Tests 02/11/25 05:01 Test 02/11/25 05:01 Range/Units Serum Glucose 111 H 74-106 mg/dL Labs and/or images reviewed: Labs reviewed by me, Image(s) reviewed by me Problem List/Assessment/Plan Problem List/Assessment/Plan flank pain hydronephrosis nephrostomy tube displacement hx of HTN proctitis, acute CT abs indicates Severe Left-sided Hydronephrosis with no obstructing calculus and abrupt tapering at the ureteropelvic junction. There is a malpositioned left-sided percutaneous nephrostomy tube terminating over the cortex of the left renal lower pole. Recommend clinical correlation. [id number]-[id number] fat stranding adjacent to The left kidney which is most likely from the Hydronephrosis. Mild wall thickening of the urinary bladder which may be due to inadequate distention. Correlation with urinalysis is recommended to exclude cystitis. Enlarged prostate with prostatic seeding. 2 cm indeterminate left adrenal nodule. Adrenal protocol CT / MRI should be considered for further evaluation. Distal rectal wall thickening. Correlate for proctitis/neoplasm. discussed with pt pt developed YULISA, consult to nephro pain is adequate awaiting for IR to evaluate for nephrostomy tube 02/12/2025: called IR, not able to evalaute until thursday consult to urology pending IR pt on empirical iv abx Plan discussed with: Patient My Orders My Orders Orders - HANY BEST DO Procedure Category Date Status Time * Urology Consult CONS 02/12/25 Verified 12:42 HANY BEST DO Feb 12, 2025 12:49
[2025-02-13] VITALS (11 sets, daily range): BP systolic 127–146; BP diastolic 68–94; PULSE 77–109; RESP 14–20; TEMP 97.3–99.9; O2SAT 96–99
--- NOTE | 2025-02-13 08:11 | DVHINCON2 ---
History of Present Illness History Source: Patient, RN Notes, MD Notes, Old Records Exam Limitations: No limitations HPI 70 year old male who presented to the emergency department on February 10 with gross hematuria noted from his left nephrostomy tube. 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 He was previously evaluated inpatient by Dr. Hassan on Nove mber 11, at which time CT imaging demonstrated severe left hydronephrosis without an obstructing ureteral stone, abrupt tapering at the UPJ, and a bilobed non obstructing left lower pole renal calculus measuring approximately 1.8 by 1.2 centimeters, as well as a left adrenal adenoma. At that time, left nephrostomy tube placement and a MAG 3 renal scan were recommended. MAG 3 renal scan performed on December 28 demonstrated split renal function of 37 percent on the left and 63 percent on the right with no excretion and no response to Lasix administration on the left, consistent with functional obstruction. During the current admission, CT imaging from February 10 again demonstrates severe left sided hydronephrosis with abrupt tapering at the UPJ and no obstructing ureteral stone. The left nephrostomy tube is malpositioned. There is mild to moderate perinephric fat stranding adjacent to the left kidney, most likely related to chronic hydronephrosis. Additional findings include prostatomegaly, mild bladder wall thickening possibly related to under distension, a 2 centimeter indeterminate left adrenal nodule, and a coarse left lower pole renal calcification measuring approximately 1.7 by 1 centimeter. Home Meds Active Scripts Metoprolol Succinate (Toprol Xl) 50 Mg Tab, 25 MG PO DAILY for 90 Days, #45 TAB Prov:CHA VELA MD 12/30/24 Atorvastatin Calcium (ATORVASTATIN CALCIUM) 20 Mg Tab, 10 MG PO HS for 90 Days, #45 TAB Prov:CHA VELA MD 12/30/24 Amlodipine Besylate (NORVASC TABLET) 5 Mg Tb, 5 MG PO BID for 90 Days, #180 TAB Prov:CHA VELA MD 12/30/24 Reported Medications Cholecalciferol (D3) 50 Mcg Cap, 50 MCG PO, CAP 02/11/25 Mecobalamin (B-12 QUICK DISSOLVE) 5,000 Mcg Tab, 2500 MCG PO, TAB 12/27/25 Potassium Gluconate (POTASSIUM GLUCONATE) 80 Mg Tab, 99 MG PO, TAB 02/11/25 Aspirin (ASPIRIN 81) 81 Mg Tab, 81 MG PO, TAB 02/11/25 Past Medical History Patient Family History: Hypertension G8 MOTHER H&P Exam Vital Signs Vital Signs Date Time Temp Pulse Resp B/P (MAP) Pulse Ox O2 Delivery O2 Flow Rate FiO2 02/13/25 05:00 97.3 81 17 127/87 (100) 96 97.3 02/12/25 20:00 Room Air* 0 21 Labs/Xrays Labs Test 02/11/25 05:01 02/10/25 20:40 02/10/25 19:26 02/10/25 19:21 Range/Units White Blood Count 7.0 4.4-10.8 10^3/uL Red Blood Count 4.56 4.5-5.90 10^6/uL Hemoglobin 13.9 13.5-17.5 g/dL Hematocrit 41.1 41.0-53.0 % Mean Corpuscular Volume 90.0 80.0-100.0 fL Mean Corpuscular Hemoglobin 30.5 28.0-32.0 pg Mean Corpuscular Hemoglobin Concent 33.9 32.0-36.0 g/dL Red Cell Distribution Width 14.0 11.8-14.3 % Platelet Count 204 140-450 10^3/uL Mean Platelet Volume 8.1 6.9-10.8 fL Neutrophils (%) (Auto) 71.0 37.0-80.0 % Lymphocytes (%) (Auto) 16.6 10.0-50.0 % Monocytes (%) (Auto) 10.6 0.0-12.0 % Eosinophils (%) (Auto) 1.3 0.0-7.0 % Basophils (%) (Auto) 0.5 0.0-2.0 % Neutrophils # (Auto) 5.0 1.6-8.6 10 ^3/uL Lymphocytes # (Auto) 1.2 0.4-5.4 10 ^3/uL Monocytes # (Auto) 0.7 0-1.3 10 ^3/uL Eosinophils # (Auto) 0.1 0-0.8 10 ^3/uL Basophils # (Auto) 0 0-0.2 10 ^3/uL Nucleated Red Blood Cells 0.1 % Sodium Level 145 136-145 mmol/L Potassium Level 3.6 3.5-5.1 mmol/L Chloride Level 112 H 98-107 mmol/L Carbon Dioxide Level 22 20-31 mmol/L Anion Gap 11 5-15 Blood Urea Nitrogen 12 9-23 mg/dL Creatinine 1.34 H 0.700-1.30 mg/dL Glomerular Filtration Rate Calc 57 >90 mL/min BUN/Creatinine Ratio 9.0 L 10.0-20.0 Serum Glucose 111 H 74-106 mg/dL Calcium Level 8.7 8.7-10.4 mg/dL Total Bilirubin 0.5 0.2-1.0 mg/dL Aspartate Amino Transferase (AST) 14 13-40 U/L Alanine Aminotransferase (ALT) 28 7-40 U/L Alkaline Phosphatase 74 46-116 U/L Total Protein 6.3 5.7-8.2 g/dL Albumin 4.0 3.2-4.8 g/dL Troponin I High Sensitivity 7 </=54 ng/L Lactic Acid Level 1.8 0.4-2.0 mmol/L Urine Color Light-brown Yellow Urine Clarity Turbid H Clear Urine pH 6.5 5.0-9.0 Urine Specific [place] 1.009 1.001-1.035 Urine Protein 1+ H Negative Urine Ketones Negative Negative Urine Blood 3+ H Negative /uL Urine Nitrite Negative Negative Urine Bilirubin Negative Negative Urine Urobilinogen Normal Negative mg/dL Urine Leukocyte Esterase 3+ Negative /uL Urine RBC 102 0 - 3 /hpf Urine WBC Clumps Present None Seen /hpf Urine Microscopic WBC 726 H 0-3 /HPF Urine Squamous Epithelial Cells None seen <5 /hpf Urine Bacteria Few H None Seen /hpf Urine Yeast (Budding) Many None Seen /hpf Urine Glucose Normal Normal mg/dL Test 02/10/25 19:12 Range/Units Magnesium Level 2.3 1.6-2.6 mg/dL Assessment/Plan Plan gross hematuria from the left nephrostomy tube in the setting of malpositioned nephrostomy, 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 Hematuria is most likely secondary to nephrostomy tube malposition and irritation, though concurrent infection cannot be excluded given significant pyuria. Renal function is mildly impaired. Plan is to proceed with IR guided nephrostomy tube exchange or repositioning to ensure adequate drainage of the left collecting system. Recommend sending urine culture from the nephrostomy tube at time of exchange. Monitor renal function, urine output, and hematuria closely. Definitive outpatient management will require follow up for UPJ obstruction evaluation and discussion of surgical options given preserved but reduced left renal function. Plan discussed with: Patient, Other GEORGI BENITEZ NP Feb 13, 2025 08:11
[2025-02-13 09:58] LABS: Hepatitis B Surface Antigen Negative (Negative)
[2025-02-13 11:10] LABS: Hepatitis C Antibody Negative (Negative)
[2025-02-13 11:59] LABS: INR 0.95 (0.9-1.15); Partial Thromboplastin Time 30.1 SEC (24.5-34.5); Prothrombin Time 10.1 sec (9.3-11.8)
[2025-02-13] MEDS: IODIXANOL 320MG/ML 100ML BTL IV ONE (12:04)
[2025-02-13] MEDS: MIDAZOLAM HCL 2MG/2ML 2ml VIAL (1mg/ml) ONE (12:06)
[2025-02-13] MEDS: fentaNYL CITRATE 100 MCG/2 ML VL ONE (12:06)
[2025-02-13] MEDS: LIDOCAINE 2%HCL (LOCAL ANESTH.) INJ 20ML MDV ONE (12:07)
--- NOTE | 2025-02-13 21:05 | DVH ---
XY PERCUTANEOUS NEPHROSTOMY HISTORY: Left UPJ obstruction with functioning left kidney and severe hydronephrosis here for replacement of malpositioned / retracted nephrostomy tube. PROCEDURE: Informed consent was obtained. The patient was placed on the fluoroscopic table in a prone position and IV sedation administered. The left flank was prepped with chlorhexidine which was allowed to dry and draped in the usual sterile fashion. 1 gram of ceftriaxone was given IV. Time out was performed. An antegrade nephrostogram was performed through the old nephrostomy tube which was completely out of the kidney and thus removed. The soft tissues infiltrated with 1% lidocaine local anesthetic. Utilizing ultrasound guidance, a 21 gauge Accu Stick needle was advanced from a posterolateral approach into an middle pole calyx, and a small amount of contrast was injected under fluoroscopy to confirm positioning. Over a mandril wire, exchange was made to a non-vascular access set, through which was advanced an 0.035 wire. Following serial dilation, an 8.5 [place] multipurpose nephrostomy catheter was placed with tip pigtailed within the renal pelvis. Position was confirmed with antegrade nephrostogram. The catheter was secured in place and connected to gravity drainage. A sterile dressing was applied. No immediate complication was identified. Air Kerma 11 mGy FLUOROSCOPY TIME: 3.0 minutes. CONTRAST USED: 30 mL Omni 300. SEDATION: Dr. Cammy Barker was personally responsible for the administration of moderate sedation during the procedure performed, including the use of an independent trained observer who had no other duties during the procedure. The drugs utilized were IV fentanyl and versed (see nursing log for details). The total time of supervision by the attending physician was approximately 45 minutes. FINDINGS: Initial pigtail catheter placement was placed into a large renal cyst with approximately 250 mL of fluid aspirated. Second pigtail catheter was placed into the dilated renal pelvis with the initial pigtail catheter that was in the cyst removed. Severely dilated left renal collecting system with contrast obstructing at the UPJ. New 8.5 vietnamese nephrostomy tube via a posterior mid pole calyceal access, with loop coiled within the renal pelvis. IMPRESSION: Placement of an 8.5 fr left nephrostomy tube into the left renal pelvis. Initial pigtail catheter placement was placed into a large renal cyst with approximately 250 mL of fluid aspirated. Second pigtail catheter was placed into the dilated renal pelvis with the initial pigtail catheter that was in the cyst removed. Severely dilated left renal collecting system with contrast obstructing at the UPJ. PLAN: Consider cystoscopy for further evaluation.
[2025-02-14 01:00] VITALS: BP 124/82; PULSE 97; RESP 16; TEMP 99.3; O2SAT 96
[2025-02-14 05:00] VITALS: BP 106/67; PULSE 88; RESP 16; TEMP 99.2; O2SAT 97
[2025-02-14 08:53] VITALS: BP 120/66; PULSE 84; RESP 16; TEMP 98.4; O2SAT 97
--- NOTE | 2025-02-14 10:37 | DVHPN2 ---
Progress Note Date Seen: Feb 13, 2025 Medical Necessity Reason Pt with a Central, PICC or Fol: No Objective vital signs Vital Sign Date Time Temp Pulse Resp B/P (MAP) Pulse Ox O2 Delivery O2 Flow Rate FiO2 02/14/25 08:53 98.4 84 16 120/66 (84) 97 98.4 02/14/25 08:00 Room Air* 0 21 Total Intake and Output 02/13/25 02/13/25 02/14/25 15:00 23:00 07:00 Intake Total 50 ml 1350 ml 475 ml Balance 50 ml 1350 ml 475 ml medications Current Medications Medications Dose Ordered Sig/Jorge Route Start Time Stop Time Status Last Admin Dose Admin Acetaminophen/ Hydrocodone Bitart 1 tab Q4HP PRN PO 02/10/25 22:15 Ondansetron HCl 4 mg Q4HP PRN IV 02/10/25 22:15 Docusate Sodium 100 mg BIDPRN PRN PO 02/10/25 22:15 Acetaminophen 650 mg Q6HP PRN PO 02/10/25 22:15 Morphine Sulfate 2 mg Q4HPRN PRN IV 02/10/25 22:15 Enoxaparin Sodium 40 mg DAILY SC 02/10/25 22:15 02/12/25 09:58 40 MG Nitroglycerin 0.4 mg Q5MINP PRN SL 02/10/25 22:15 Morphine Sulfate 2 mg Q30M PRN IV 02/10/25 22:15 Ceftriaxone Sodium 50 ml @ 100 mls/hr DAILY IV 02/11/25 21:30 02/14/25 09:37 100 MLS/HR Metronidazole 100 ml @ 100 mls/hr Q8HR IV 02/12/25 14:00 02/14/25 05:45 100 MLS/HR Examination: GENERAL:Normal, HEENT:Normal, NECK:Normal, LUNGS:Normal laboratory and microbiology Laboratory Tests 02/11/25 05:01 Test 02/11/25 05:01 Range/Units Serum Glucose 111 H 74-106 mg/dL Microbiology Date/Time Source Procedure Growth Status 02/13/25 12:48 Aspirate Gram Stain - Final Resulted 02/13/25 12:48 Aspirate Body Fluid Culture - Preliminary No growth Resulted 02/11/25 21:55 Voided Urine Urine Culture - Preliminary No growth Resulted Labs and/or images reviewed: Labs reviewed by me, Image(s) reviewed by me Problem List/Assessment/Plan Problem List/Assessment/Plan flank pain hydronephrosis nephrostomy tube displacement hx of HTN proctitis, acute CT abs indicates Severe Left-sided Hydronephrosis with no obstructing calculus and abrupt tapering at the ureteropelvic junction. There is a malpositioned left-sided percutaneous nephrostomy tube terminating over the cortex of the left renal lower pole. Recommend clinical correlation. [id number] fat stranding adjacent to The left kidney which is most likely from the Hydronephrosis. Mild wall thickening of the urinary bladder which may be due to inadequate distention. Correlation with urinalysis is recommended to exclude cystitis. Enlarged prostate with prostatic seeding. 2 cm indeterminate left adrenal nodule. Adrenal protocol CT / MRI should be considered for further evaluation. Distal rectal wall thickening. Correlate for proctitis/neoplasm. discussed with pt pt developed YULISA, consult to nephro pain is adequate awaiting for IR to evaluate for nephrostomy tube 02/12/2025: called IR, not able to evalaute until thursday consult to urology pending IR pt on empirical iv abx 02/13/2025: pending nephrotomy tube placement per radiology Plan discussed with: Patient My Orders My Orders Orders - HANY BEST DO Procedure Category Date Status Time * Radiologist Consult CONS 02/14/25 Transmitted 10:34 HANY BEST DO Feb 14, 2025 10:37
[2025-02-14] MEDS ORDERED: CEPH250C PO (11:42)
--- NOTE | 2025-02-14 11:45 | DVHDS2 ---
Discharge Summary Date of Admission Feb 10, 2025 at 22:05 Date of Discharge: Feb 14, 2025 Labs/Diagnostic Data: Laboratory Results Test 02/13/25 11:00 02/11/25 05:01 02/10/25 20:40 02/10/25 19:26 Prothrombin Time 10.1 sec (9.3-11.8) Prothrombin Time INR 0.95 (0.9-1.15) Activated Partial Thromboplast Time 30.1 SEC (24.5-34.5) White Blood Count 7.0 10^3/uL (4.4-10.8) Red Blood Count 4.56 10^6/uL (4.5-5.90) Hemoglobin 13.9 g/dL (13.5-17.5) Hematocrit 41.1 % (41.0-53.0) Mean Corpuscular Volume 90.0 fL (80.0-100.0) Mean Corpuscular Hemoglobin 30.5 pg (28.0-32.0) Mean Corpuscular Hemoglobin Concent 33.9 g/dL (32.0-36.0) Red Cell Distribution Width 14.0 % (11.8-14.3) Platelet Count 204 10^3/uL (140-450) Mean Platelet Volume 8.1 fL (6.9-10.8) Neutrophils (%) (Auto) 71.0 % (37.0-80.0) Lymphocytes (%) (Auto) 16.6 % (10.0-50.0) Monocytes (%) (Auto) 10.6 % (0.0-12.0) Eosinophils (%) (Auto) 1.3 % (0.0-7.0) Basophils (%) (Auto) 0.5 % (0.0-2.0) Neutrophils # (Auto) 5.0 10 ^3/uL (1.6-8.6) Lymphocytes # (Auto) 1.2 10 ^3/uL (0.4-5.4) Monocytes # (Auto) 0.7 10 ^3/uL (0-1.3) Eosinophils # (Auto) 0.1 10 ^3/uL (0-0.8) Basophils # (Auto) 0 10 ^3/uL (0-0.2) Nucleated Red Blood Cells 0.1 % Sodium Level 145 mmol/L (136-145) Potassium Level 3.6 mmol/L (3.5-5.1) Chloride Level 112 mmol/L (98-107) Carbon Dioxide Level 22 mmol/L (20-31) Anion Gap 11 (5-15) Blood Urea Nitrogen 12 mg/dL (9-23) Creatinine 1.34 mg/dL (0.700-1.30) Glomerular Filtration Rate Calc 57 mL/min (>90) BUN/Creatinine Ratio 9.0 (10.0-20.0) Serum Glucose 111 mg/dL (74-106) Calcium Level 8.7 mg/dL (8.7-10.4) Total Bilirubin 0.5 mg/dL (0.2-1.0) Aspartate Amino Transferase (AST) 14 U/L (13-40) Alanine Aminotransferase (ALT) 28 U/L (7-40) Alkaline Phosphatase 74 U/L (46-116) Total Protein 6.3 g/dL (5.7-8.2) Albumin 4.0 g/dL (3.2-4.8) Hepatitis B Surface Antigen Negative (Negative) Hepatitis C Antibody Negative (Negative) Troponin I High Sensitivity 7 ng/L (</=54) Lactic Acid Level 1.8 mmol/L (0.4-2.0) Test 02/10/25 19:21 02/10/25 19:12 Urine Color Light-brown (Yellow) Urine Clarity Turbid (Clear) Urine pH 6.5 (5.0-9.0) Urine Specific [place] 1.009 (1.001-1.035) Urine Protein 1+ (Negative) Urine Ketones Negative (Negative) Urine Blood 3+ /uL (Negative) Urine Nitrite Negative (Negative) Urine Bilirubin Negative (Negative) Urine Urobilinogen Normal mg/dL (Negative) Urine Leukocyte Esterase 3+ /uL (Negative) Urine RBC 102 /hpf (0 - 3) Urine WBC Clumps Present /hpf (None Seen) Urine Microscopic WBC 726 /HPF (0-3) Urine Squamous Epithelial Cells None seen /hpf (<5) Urine Bacteria Few /hpf (None Seen) Urine Yeast (Budding) Many /hpf (None Seen) Urine Glucose Normal mg/dL (Normal) Magnesium Level 2.3 mg/dL (1.6-2.6) Other Laboratory Tests 02/11/25 05:01 Brief Hx & Hospital Course: flank pain hydronephrosis YULISA/ATN nephrostomy tube displacement hx of HTN CT abs indicates Severe Left-sided Hydronephrosis with no obstructing calculus and abrupt tapering at the ureteropelvic junction. There is a malpositioned left-sided percutaneous nephrostomy tube terminating over the cortex of the left renal lower pole. Recommend clinical correlation. [id number] fat stranding adjacent to The left kidney which is most likely from the Hydronephrosis. Mild wall thickening of the urinary bladder which may be due to inadequate distention. Correlation with urinalysis is recommended to exclude cystitis. Enlarged prostate with prostatic seeding. 2 cm indeterminate left adrenal nodule. Adrenal protocol CT / MRI should be considered for further evaluation. Distal rectal wall thickening. Correlate for proctitis/neoplasm. pt discharged to home Condition at Discharge: Fair Final Diagnosis/Problems List nephrostomy tube displacement Discharge Disposition: Home Discharge Instruct/Medications Diet: Cardiac 2g Na,low cholest Activity: No Restrictions, As Tolerated Scheduled Amlodipine Besylate (Norvasc Tablet), 5 MG PO BID Atorvastatin Calcium (Atorvastatin Calcium), 10 MG PO HS Cephalexin (Keflex Capsule), 2 CAP PO BID Metoprolol Succinate (Toprol Xl), 25 MG PO DAILY Miscellaneous Medications Aspirin (Aspirin 81), 81 MG PO, (Reported) Cholecalciferol (D3), 50 MCG PO, (Reported) Mecobalamin (B-12 Quick Dissolve), 2,500 MCG PO, (Reported) Potassium Gluconate (Potassium Gluconate), 99 MG PO, (Reported) Discharge Statement: "Patient was advised to return to the ER or call 911 if any headaches, dizziness, shortness of breath, chest pain, abdominal pain, bleeding, fevers, or worsening of medical condition. Patient was counseled about treatment plan, medications, possible side effects, patientverbalized understanding. All questions were answered to the best of my ability. This discharge took greater then 30 minutes in planning, reviewing documentation, counseling the patient, and discussing with other team members." ASSESSMENT ASSESSMENT Assessment HANY BEST DO Feb 14, 2025 11:45
--- NOTE | 2025-02-14 12:27 | ECG ---
[facility] Test Date: 2025-02-13 Test Time: 11:02:02 Pat Name: TRENT SANTORO Department: Respiratoy Room: 0240 B Gender: M Chief Technologist: MASON : [id number] Requested By: JOSIE HERRERA Order Number: [id number] Reading MD: Mitesh Simmons Measurements Intervals [place] Rate: 85 P: 67 CT: 167 QRS: 38 QRSD: 100 T: 43 QT: 377 QTc: 449 Interpretive Statements Sinus rhythm Probable left ventricular hypertrophy Electronically Signed On 02-16-2025 15:36:37 PST by Mitesh Simmons Please click the below link to view image of tracing.
[2025-02-14 13:00] VITALS: BP 102/67; PULSE 88; RESP 16; TEMP 98.5; O2SAT 96
== END 2025-02-14 14:07 | disposition home or self-care (01) | DRG 698 ==
LOC: EDBD 18:32 → ER 18:32 → OVERFLOW 22:05 → EAST 22:07
PROVIDERS: ADMIT Internal Medicine; ATTEND Internal Medicine
PROC: BT121ZZ Fluoroscopy of Left Kidney using Low Osmolar Contrast (ICD-10-PCS; principal; 2025-02-13)
PROC: 0T9430Z Drainage of Left Kidney Pelvis with Drainage Device, Percutaneous Approach (ICD-10-PCS; 2025-02-13)
DX: T83.022A Displacement of nephrostomy catheter, initial encounter (principal); N17.0 Acute kidney failure with tubular necrosis; I10 Essential (primary) hypertension; N13.30 Unspecified hydronephrosis; E78.5 Hyperlipidemia, unspecified; N40.0 Benign prostatic hyperplasia without lower urinary tract symptoms; R31.0 Gross hematuria; E27.8 Other specified disorders of adrenal gland; Z87.442 Personal history of urinary calculi; Z79.899 Other long term (current) drug therapy; Z82.49 Family history of ischemic heart disease and other diseases of the circulatory system; Y84.8 Other medical procedures as the cause of abnormal reaction of the patient, or of later complication, without mention of misadventure at the time of the procedure; Y92.89 Other specified places as the place of occurrence of the external cause
CPT/HCPCS: 36415; 50431; 50432; 74176; 74425; 76942; 80053; 81001; 83605; 83735; 84484; 85025; 85610; 85730; 86803; 86850; 86900; 86901; 87071; 87086; 87205; 87340; 93005; 96365; 99152; G0378; J2250; J3490; Q9967